=== PATIENT | male | born 1975 | race Caucasian/White ===

== ENCOUNTER 2017-10-01 19:29 | Inpatient (IN) | payer OTHER ==
[~2017-10-01] VITALS: Ht 175.3 cm; Wt 106.2 kg
--- NOTE | 2017-10-01 19:45 | PHYS DOC ---
Adult General Chief Complaint Chief Complaint: NAUSEA/VOMITING/DIARRHA HPI HPI Patient is a 42 year old male who presents with right lower quadrant pain and diarrhea. He states he symptoms are going on for the last 3 days he's had numerous nonbloody loose stools and then last night developed right lower quadrant pain that comes and goes. He states it comes on for couple hours and then goes away he states is sharp stabbing in the right lower quadrant. Nothing makes it better or worse. He denies any dysuria he denies any testicular pain. He did have one episode of vomiting this morning. He denies blood in his vomit. He denies any blood in his stools. He states he actually was on Flagyl 2 weeks ago because he been having intermittent diarrhea this prescription ran approximately week ago. He denies any fevers or chills. He states anything he eats or drinks comes out as diarrhea. He has a past medical history of hypertension, dyslipidemia and bipolar. Review of Systems Review of Systems Constitutional: Denies fever or chills [] Eyes: Denies change in visual acuity, redness, or eye pain [] HENT: Denies nasal congestion or sore throat [] Respiratory: Denies cough or shortness of breath [] Cardiovascular: No additional information not addressed in HPI [] GI: Positive for abdominal pain, nausea, vomiting diarrhea , denies any bloody stools : Denies dysuria or hematuria [] Musculoskeletal: Denies back pain or joint pain [] Integument: Denies rash or skin lesions [] Neurologic: Denies headache, focal weakness or sensory changes [] Endocrine: Denies polyuria or polydipsia [] All other systems were reviewed and found to be within normal limits, except as documented in this note. Current Medications Current Medications Current Medications Medications (Trade) Dose Ordered Sig/Trinh Start Time Stop Time Status Last Admin Dose Admin Info (Do NOT chart on this entry -- for MONITORING) 1 each PRN DAILY PRN 10/01/17 21:00 10/03/17 20:59 Iohexol (Omnipaque 300 Mg/ml) 75 ml 1X ONCE 10/01/17 21:15 10/01/17 21:16 DC 10/01/17 20:58 75 ML Levofloxacin/ Dextrose (Levaquin Per Pharmacy) 1 each PRN DAILY PRN 10/01/17 21:30 UNV Metronidazole 100 ml @ 100 mls/hr Q8HRS 10/01/17 22:00 UNV Morphine Sulfate 4 mg PRN Q15MIN PRN 10/01/17 20:30 10/02/17 20:29 10/01/17 20:46 4 MG Ondansetron HCl (Zofran) 4 mg 1X ONCE 10/01/17 20:45 10/01/17 20:46 DC 10/01/17 20:46 4 MG Sodium Chloride 1,000 ml @ 1,000 mls/hr Q1H 10/01/17 20:30 10/01/17 21:29 DC 10/01/17 20:46 1,000 MLS/HR Allergies Allergies Allergies Coded Allergies Type Severity Reaction Last Updated Verified Penicillins Allergy Severe 10/01/17 Yes codeine Allergy Intermediate 10/01/17 Yes Physical Exam Physical Exam Constitutional: Well developed, well nourished, no acute distress, non-toxic appearance. [] HENT: Normocephalic, atraumatic, bilateral external ears normal, oropharynx moist, no oral exudates, nose normal. [] Eyes: PERRLA, EOMI, conjunctiva normal, no discharge. [] Neck: Normal range of motion, no tenderness, supple, no stridor. [] Cardiovascular:Heart rate regular rhythm, no murmur [] Lungs & Thorax: Bilateral breath sounds clear to auscultation [] Abdomen: Bowel sounds normal, soft, tender to palpation in the right lower quadrant, mild guarding, psoas sign positive, no masses, no pulsatile masses. [ ] Skin: Warm, dry, no erythema, no rash. [] Back: No tenderness, no CVA tenderness. [] Extremities: No tenderness, no cyanosis, no clubbing, ROM intact, no edema. [] Neurologic: Alert and oriented X 3, normal motor function, normal sensory function, no focal deficits noted. [] Psychologic: Affect normal, judgement normal, mood normal. [] Current Patient Data Vital Signs Vital Signs Date Time Temp Pulse Resp B/P (MAP) Pulse Ox O2 Delivery O2 Flow Rate FiO2 10/01/17 20:46 20 10/01/17 20:00 97.9 93 138/87 (104) 96 Room Air 97.9 Lab Values Laboratory Tests Test 10/01/17 20:00 10/01/17 20:32 White Blood Count 11.5 x10^3/uL (4.0-11.0) H Red Blood Count 4.72 x10^6/uL (4.30-5.70) Hemoglobin 14.0 g/dL (13.0-17.5) Hematocrit 42.2 % (39.0-53.0) Mean Corpuscular Volume 90 fL (79-100) Mean Corpuscular Hemoglobin 30 pg (25-35) Mean Corpuscular Hemoglobin Concent 33 g/dL (31-37) Red Cell Distribution Width 14.7 % (11.5-14.5) H Platelet Count 267 x10^3/uL (140-400) Neutrophils (%) (Auto) 49 % (31-73) Lymphocytes (%) (Auto) 41 % (24-48) Monocytes (%) (Auto) 7 % (0-9) Eosinophils (%) (Auto) 3 % (0-3) Basophils (%) (Auto) 1 % (0-3) Neutrophils # (Auto) 5.6 x10^3uL (1.8-7.7) Lymphocytes # (Auto) 4.7 x10^3/uL (1.0-4.8) Monocytes # (Auto) 0.8 x10^3/uL (0.0-1.1) Eosinophils # (Auto) 0.3 x10^3/uL (0.0-0.7) Basophils # (Auto) 0.1 x10^3/uL (0.0-0.2) Prothrombin Time 12.4 SEC (11.7-14.0) Prothrombin Time INR 1.0 (0.8-1.1) PTT 26 SEC (24-38) Sodium Level 136 mmol/L (136-145) Potassium Level 4.0 mmol/L (3.5-5.1) Chloride Level 101 mmol/L (98-107) Carbon Dioxide Level 25 mmol/L (21-32) Anion Gap 10 (6-14) Blood Urea Nitrogen 10 mg/dL (8-26) Creatinine 0.9 mg/dL (0.7-1.3) Estimated GFR (Cockcroft-Gault) 93.5 Glucose Level 130 mg/dL (70-99) H Calcium Level 8.5 mg/dL (8.5-10.1) Total Bilirubin 0.2 mg/dL (0.2-1.0) Direct Bilirubin 0.1 mg/dL (0.0-0.2) Aspartate Amino Transferase (AST) 21 U/L (15-37) Alanine Aminotransferase (ALT) 45 U/L (16-63) Alkaline Phosphatase 82 U/L (46-116) Creatine Kinase 189 U/L (39-308) Creatine Kinase MB (Mass) 1.6 ng/mL (0.0-3.6) Creatine Kinase MB Relative Index 0.8 % (0-4) Troponin I Quantitative < 0.017 ng/mL (0.000-0.055) Total Protein 7.4 g/dL (6.4-8.2) Albumin 3.7 g/dL (3.4-5.0) Lipase 165 U/L (73-393) Urine Collection Type Unknown Urine Color Yellow Urine Clarity Clear Urine pH 6.0 Urine Specific [place] <=1.005 Urine Protein Negative mg/dL (NEG-TRACE) Urine Glucose (UA) Negative mg/dL (NEG) Urine Ketones (Stick) Negative mg/dL (NEG) Urine Blood Negative (NEG) Urine Nitrite Negative (NEG) Urine Bilirubin Negative (NEG) Urine Urobilinogen Dipstick 0.2 mg/dL (0.2 mg/dL) Urine Leukocyte Esterase Negative (NEG) Urine RBC 0 /HPF (0-2) Urine WBC 0 /HPF (0-4) Urine Bacteria 0 /HPF (0-FEW) Urine Opiates Screen Neg (NEG) Urine Methadone Screen Neg (NEG) Urine Barbiturates Neg (NEG) Urine Phencyclidine Screen Neg (NEG) Urine Amphetamine/Methamphetamine Neg (NEG) Urine Benzodiazepines Screen Neg (NEG) Urine Cocaine Screen Neg (NEG) Urine Cannabinoids Screen Neg (NEG) Urine Ethyl Alcohol Neg (NEG) Laboratory Tests 10/01/17 20:00 Laboratory Tests 10/01/17 20:00 EKG EKG [] Radiology/Procedures Radiology/Procedures [facility] [address] [place] [address] IMAGING REPORT Signed PATIENT: LILI GODOY V ACCOUNT: [id number] : 1975 LOCATION: ER AGE: 42 SEX: M EXAM STATUS: REG ER ORD. PHYSICIAN: GRIFFIN RUIZ MD REASON: abd pain PROCEDURE: CT ABD PELV W/ IV CONTRST ONLY CT Abdomen and Pelvis With Intravenous Contrast: History: Nausea, vomiting, diarrhea for 3 days . Right lower quadrant pain today. Comparison: None. Technique: After administration of intravenous contrast, 75 mL Omnipaque-300, CT of the abdomen and pelvis was performed. Exposure: One or more of the following individualized dose reduction techniques were utilized for this examination: 1. Automated exposure control 2. Adjustment of the mA and/or kV according to patient size 3. Use of iterative reconstruction technique Findings: Liver, spleen, pancreas, gallbladder, and right adrenal gland are unremarkable. Left adrenal gland demonstrates 2.0 cm nodule, nonspecific. Bilateral kidneys enhance symmetrically. No bowel obstruction or inflammation is seen. Urinary bladder is unremarkable. No free air or free fluid is seen in the abdomen or pelvis. Appendix is borderline enlarged with diameter of 8 mm up. No convincing periappendiceal inflammation is identified. Impression: 1. Appendix is mildly enlarged measuring 8 mm in diameter. Recommend clinical correlation as CT findings are considered equivocal for acute appendicitis, although no periappendiceal inflammation is identified. 2. Nonspecific left adrenal nodule. If no history of malignancy, based on size, most likely etiology is adenoma. Recommend clinical correlation. If indicated, elective, nonemergent adrenal mass protocol CT versus MRI could be performed Electronically signed by: Gaurav Hernandez MD (10/01/2017 9:11 PM) [facility] DICTATED and SIGNED BY: GAURAV HERNANDEZ MD DATE: 10/01/172105 CC: GRIFFIN RUIZ MD; KATRIN ACOSTA MD ~ Impressions: Abdominal pain Diarrhea Course & Med Decision Making Course & Med Decision Making Pertinent Labs and Imaging studies reviewed. (See chart for details) CT scan is somewhat concerning for appendicitis. Spoke with Dr. Yarbrough who wants patient started on Flagyl and Levaquin since have a penicillin allergy, made nothing by mouth after midnight and he will see him in the morning to determine if the need to go the OR not. Patient has been updated on the results. He is in stable condition at this time be admitted to the hospitalist. Dragon Disclaimer Dragon Disclaimer This electronic medical record was generated, in whole or in part, using a voice recognition dictation system. Departure Departure Impression: Primary Impression: Abdominal pain Disposition: 09 ADMITTED INPATIENT Admitting Physician: Juanita Nicole Condition: STABLE GRIFFIN RUIZ MD Oct 01, 2017 19:45
[2017-10-01] MEDS ORDERED: IV NORMAL SALINE 1000ML BAG 1,000 ML IV SCH (20:30)
[2017-10-01 20:35] LABS: BASO # 0.1 x10^3/uL (0.0-0.2); BASO % 1 % (0-3); EOS % 3 % (0-3); HEMATOCRIT 42.2 % (39.0-53.0); LYMPH # 4.7 x10^3/uL (1.0-4.8); LYMPH % 41 % (24-48); MEAN CORPUSCULAR HEMOGLOBIN 30 pg (25-35); MEAN CORPUSCULAR HGB CONC 33 g/dL (31-37); MEAN CORPUSCULAR VOLUME 90 fL (79-100); MONO % 7 % (0-9); NEUT % 49 % (31-73); PLATELET COUNT 267 x10^3/uL (140-400); RED BLOOD COUNT 4.72 x10^6/uL (4.30-5.70); RED CELL DISTRIBUTION WIDTH 14.7 % (11.5-14.5); WHITE BLOOD COUNT 11.5 x10^3/uL (4.0-11.0)
[2017-10-01 20:38] LABS: BILIRUBIN,URINE NEGATIVE (NEG); GLUCOSE,URINE NEGATIVE (NEG); NITRITE,URINE NEGATIVE (NEG); PROTEIN,URINE NEGATIVE (NEG-TRACE); UROBILINOGEN,URINE 0.2 mg/dL (0.2 mg/dL)
[2017-10-01 20:44] LABS: PROTHROMBIN TIME PATIENT 12.4 SEC (11.7-14.0)
[2017-10-01 20:44] LABS: BARBITURATES NEG (NEG); BENZODIAZEPINES NEG (NEG); CANNABINOIDS NEG (NEG); COCAINE NEG (NEG); METHADONE NEG (NEG); OPIATES NEG (NEG); PHENCYCLIDINE NEG (NEG)
[2017-10-01] MEDS ORDERED: ONDANSETRON PF 4 MG/2 ML VIAL. IV ONE (20:45)
[2017-10-01] MEDS: MORPHINE SULFATE 4 MG/ML DISP.SYRIN. IV/SQ PRN ×2 (20:46→21:50)
[2017-10-01 20:48] LABS: CALCIUM 8.5 mg/dL (8.5-10.1); CREATININE 0.9 mg/dL (0.7-1.3); GFR 93.5
[2017-10-01 20:49] LABS: BACTERIA,URINE 0 /HPF (0-FEW); RBC,URINE 0 /HPF (0-2); WBC,URINE 0 /HPF (0-4)
[2017-10-01 20:54] LABS: ALBUMIN 3.7 g/dL (3.4-5.0); DIRECT BILIRUBIN 0.1 mg/dL (0.0-0.2); TOTAL BILIRUBIN 0.2 mg/dL (0.2-1.0); TOTAL PROTEIN 7.4 g/dL (6.4-8.2)
[2017-10-01 21:00] LABS: CKMB MASS 1.6 ng/mL (0.0-3.6)
[2017-10-01] MEDS ORDERED: CONTRAST GIVEN MC PRN (21:00)
--- NOTE | 2017-10-01 21:14 | RAD ---
CT Abdomen and Pelvis With Intravenous Contrast: History: Nausea, vomiting, diarrhea for 3 days . Right lower quadrant pain today. Comparison: None. Technique: After administration of intravenous contrast, 75 mL Omnipaque-300, CT of the abdomen and pelvis was performed. Exposure: One or more of the following individualized dose reduction techniques were utilized for this examination: 1. Automated exposure control 2. Adjustment of the mA and/or kV according to patient size 3. Use of iterative reconstruction technique Findings: Liver, spleen, pancreas, gallbladder, and right adrenal gland are unremarkable. Left adrenal gland demonstrates 2.0 cm nodule, nonspecific. Bilateral kidneys enhance symmetrically. No bowel obstruction or inflammation is seen. Urinary bladder is unremarkable. No free air or free fluid is seen in the abdomen or pelvis. Appendix is borderline enlarged with diameter of 8 mm up. No convincing periappendiceal inflammation is identified. Impression: 1. Appendix is mildly enlarged measuring 8 mm in diameter. Recommend clinical correlation as CT findings are considered equivocal for acute appendicitis, although no periappendiceal inflammation is identified. 2. Nonspecific left adrenal nodule. If no history of malignancy, based on size, most likely etiology is adenoma. Recommend clinical correlation. If indicated, elective, nonemergent adrenal mass protocol CT versus MRI could be performed Electronically signed by: Gaurav Mcfadden MD (10/01/2017 9:11 PM) [facility]
[2017-10-01] MEDS ORDERED: IOHEXOL 300 MG/ML 100ML VIAL. IV ONE (21:15)
[2017-10-01] MEDS ORDERED: levOFLOXacin PER PHARMACY. MC PRN (21:30)
[2017-10-01 22:27] VITALS: BP 143/93
[2017-10-02] VITALS (12 sets, daily range): BP systolic 87–156; BP diastolic 49–91
[2017-10-02] MEDS ORDERED: METO-239 PO (01:05)
[2017-10-02] MEDS ORDERED: BUSP15TA PO (01:05)
[2017-10-02] MEDS ORDERED: ARIP15TA6 PO (01:05)
[2017-10-02] MEDS ORDERED: ATOR80TA72 PO (01:05)
[2017-10-02] MEDS ORDERED: LACT1CAP8 PO (01:05)
[2017-10-02] MEDS ORDERED: DIVA500T17 PO (01:08)
[2017-10-02] MEDS: MORPHINE SULFATE 4 MG/ML DISP.SYRIN. IV PRN ×5 (02:16→21:36)
[2017-10-02] MEDS ORDERED: ONDANSETRON PF 4 MG/2 ML VIAL. IV PRN ×3 (05:00→14:15)
--- NOTE | 2017-10-02 06:34 | EKG ---
[facility] [address] [place] [address] Test Date: 2017-10-01 Test Time: 20:41:50 Pat Name: LILI GODOY Department: Room: 416 1 Gender: M [employer]: : 1975 Requested By: GRIFFIN RUIZ Order Number: [id number] Reading MD: Steven Anguiano Measurements Intervals [place] Rate: 89 P: 34 UT: 200 QRS: 27 QRSD: 92 T: 41 QT: 366 QTc: 452 Interpretive Statements SINUS RHYTHM LEFT ATRIAL ABNORMALITY INCOMPLETE RIGHT BUNDLE BRANCH BLOCK ABNORMAL ECG RI6.01 No previous ECG available for comparison Electronically Signed On 10-02-2017 17:41:47 MILL CONTROL OPERATOR by Steven Anguiano
--- NOTE | 2017-10-02 08:23 | PDOC2 ---
SOURAV GARCIA HYDROELECTRIC STATION OPERATOR 10/02/17 0823: CONSULT Date of Consult Date of Consult DATE: 10/02/17 TIME: 08:14 Reason for Consult Reason for Consult: abdominal pain Referring Physician Referring Physician: ER Identification/Chief Complaint Chief Complaint abdominal pain, diarrhea Problems: Source Source: Chart review, Patient History of Present Illness Reason for Visit: Reports 2 month history of diarrhea, RLQ pain, early satiety, and vomiting. Over the last 3 days symptoms became increasingly worse. Pain is aggravated by movement and touch. He was treated with Flagyl 2 weeks ago for the diarrhea, symptoms improved while taking it, however returned once stopped. No previous stool cultures have been taken Past Medical History Cardiovascular: Hyperlipidemia Psych: Bipolar Past Surgical History Past Surgical History: Hernia Repair (umbilical) Family History Family History: Other (noncontributory to current illness ) Social History 2 packs per day ALCOHOL: none Drugs: None Lives: with Family Current Problem List Problem List Problems Medical Problems: (1) Abdominal pain Status: Acute Current Medications Current Medications Current Medications Morphine Sulfate 4 mg PRN Q15MIN PRN IV/SQ PAIN GREATER THAN 3/10 Last administered on 10/01/17 21:50; Start 10/01/17 at 20:30; Stop 10/02/17 at 20 :29 Sodium Chloride 1,000 ml @ 1,000 mls/hr Q1H IV Last administered on 20:46; Start 10/01/17 at 20:30; Stop 10/01/17 at 21:29; Status DC Ondansetron HCl (Zofran) 4 mg 1X ONCE IV Last administered on 10/01/17 20:46 ; Start 10/01/17 at 20:45; Stop 10/01/17 at 20:46; Status DC Iohexol (Omnipaque 300 Mg/ml) 75 ml 1X ONCE IV Last administered on 20:58; Start 10/01/17 at 21:15; Stop 10/01/17 at 21:16; Status DC Info (Do NOT chart on this entry -- for MONITORING) 1 each PRN DAILY PRN MC SEE COMMENTS; Start 10/01/17 at 21:00; Stop 10/03/17 at 20:59 Levofloxacin/ Dextrose (Levaquin Per Pharmacy) 1 each PRN DAILY PRN MC SEE COMMENTS; Start 10/01/17 at 21:30 Metronidazole 100 ml @ 100 mls/hr Q8HRS IV Last administered on 10/02/17 05: 37; Start 10/01/17 at 22:00 Levofloxacin/ Dextrose 150 ml @ 100 mls/hr 1X ONCE IV Last administered on 23:22; Start 10/01/17 at 22:00; Stop 10/01/17 at 23:29; Status DC Levofloxacin/ Dextrose 100 ml @ 100 mls/hr Q24H IV ; Start 10/02/17 at 22:00 Morphine Sulfate 4 mg PRN Q2HR PRN IV SEVERE PAIN Last administered on 05:02; Start 10/02/17 at 02:00 Ondansetron HCl (Zofran) 4 mg PRN Q6HRS PRN IV NAUSEA/VOMITING Last administered on 10/02/17 05:01; Start 10/02/17 at 05:00 Divalproex Sodium (Depakote Er) 500 mg DAILY PO ; Start 10/02/17 at 09:00 Metoprolol Succinate (Toprol Xl) 25 mg DAILY PO ; Start 10/02/17 at 09:00 Aripiprazole (Abilify) 15 mg DAILY PO ; Start 10/02/17 at 09:00 Atorvastatin Calcium (Lipitor) 80 mg QHS PO ; Start 10/02/17 at 21:00 Buspirone HCl (Buspar) 15 mg DAILY PO ; Start 10/02/17 at 09:00 Lactobacillus Rhamnosus (Culturelle) 1 cap BID PO ; Start 10/02/17 at 09:00 Active Scripts Active Reported Divalproex Sodium Er (Divalproex Sodium) 500 Mg Tab.er.24h 500 Mg PO DAILY Probiotic (Lactobacillus Combo No.11) 1 Each Cap.sprink 1 Each PO BID Buspirone Hcl 15 Mg Tablet 15 Mg PO DAILY Atorvastatin Calcium 80 Mg Tablet 80 Mg PO DAILY Aripiprazole 15 Mg Tablet 15 Mg PO DAILY Metoprolol Succinate ( Xl ) (Metoprolol Succinate) 25 Mg Tab.er.24h 25 Mg PO DAILY Allergies Allergies: Coded Allergies: Penicillins (Verified Allergy, Severe, 10/01/17) codeine (Verified Allergy, Intermediate, 10/01/17) ROS General: YES: Chills, No: Other (fevers) PSYCHOLOGICAL ROS: No: Anxiety, Depression Eyes: No Blurry vision, No Double vision HEENT: No: Heacaches, Sore Throat Hematological and Lymphatic: No: Bleeding Problems, Blood Clots Respiratory: YES: SOB with excertion, No: Cough Cardiovascular: No Chest Pain, No Palpitations Gastrointestinal: Yes Other (see hpi) Genitourinary: No Dysuria, No Hematuria Musculoskeletal: Yes Joint Stiffness, No Joint Pain Neurological: No Impaired Coord/balance, No Numbness/Tingling Skin: No Pruritus, No Rash Physical Exam General: Alert, Oriented X3, Cooperative, No acute distress HEENT: PERRLA, Mucous membr. moist/pink Lungs: Clear to auscultation, Normal air movement Heart: Regular rate, Normal S1, Normal S2, No murmurs Abdomen: Soft, Other (moderate ttp to RLQ, no reboun rené guarding ) Skin: No rashes, No breakdown Neuro: Normal gait, Normal speech Psych/Mental Status: Mental status NL, Mood NL MUSCULOSKELETAL: No deformity, No swelling Vitals VITALS Vital Signs Date Time Temp Pulse Resp B/P (MAP) Pulse Ox O2 Delivery O2 Flow Rate FiO2 10/02/17 05:32 18 10/02/17 05:02 Room Air 10/02/17 03:00 97.4 87 156/88 (110) 95 97.4 Labs Labs Laboratory Tests Test 10/01/17 20:00 10/01/17 20:32 White Blood Count 11.5 x10^3/uL (4.0-11.0) Red Blood Count 4.72 x10^6/uL (4.30-5.70) Hemoglobin 14.0 g/dL (13.0-17.5) Hematocrit 42.2 % (39.0-53.0) Mean Corpuscular Volume 90 fL (79-100) Mean Corpuscular Hemoglobin 30 pg (25-35) Mean Corpuscular Hemoglobin Concent 33 g/dL (31-37) Red Cell Distribution Width 14.7 % (11.5-14.5) Platelet Count 267 x10^3/uL (140-400) Neutrophils (%) (Auto) 49 % (31-73) Lymphocytes (%) (Auto) 41 % (24-48) Monocytes (%) (Auto) 7 % (0-9) Eosinophils (%) (Auto) 3 % (0-3) Basophils (%) (Auto) 1 % (0-3) Neutrophils # (Auto) 5.6 x10^3uL (1.8-7.7) Lymphocytes # (Auto) 4.7 x10^3/uL (1.0-4.8) Monocytes # (Auto) 0.8 x10^3/uL (0.0-1.1) Eosinophils # (Auto) 0.3 x10^3/uL (0.0-0.7) Basophils # (Auto) 0.1 x10^3/uL (0.0-0.2) Prothrombin Time 12.4 SEC (11.7-14.0) Prothromb Time International Ratio 1.0 (0.8-1.1) Activated Partial Thromboplast Time 26 SEC (24-38) Sodium Level 136 mmol/L (136-145) Potassium Level 4.0 mmol/L (3.5-5.1) Chloride Level 101 mmol/L (98-107) Carbon Dioxide Level 25 mmol/L (21-32) Anion Gap 10 (6-14) Blood Urea Nitrogen 10 mg/dL (8-26) Creatinine 0.9 mg/dL (0.7-1.3) Estimated GFR (Cockcroft-Gault) 93.5 Glucose Level 130 mg/dL (70-99) Calcium Level 8.5 mg/dL (8.5-10.1) Total Bilirubin 0.2 mg/dL (0.2-1.0) Direct Bilirubin 0.1 mg/dL (0.0-0.2) Aspartate Amino Transf (AST/SGOT) 21 U/L (15-37) Alanine Aminotransferase (ALT/SGPT) 45 U/L (16-63) Alkaline Phosphatase 82 U/L (46-116) Creatine Kinase 189 U/L (39-308) Creatine Kinase MB (Mass) 1.6 ng/mL (0.0-3.6) Creatine Kinase MB Relative Index 0.8 % (0-4) Troponin I Quantitative < 0.017 ng/mL (0.000-0.055) Total Protein 7.4 g/dL (6.4-8.2) Albumin 3.7 g/dL (3.4-5.0) Lipase 165 U/L (73-393) Urine Collection Type Unknown Urine Color Yellow Urine Clarity Clear Urine pH 6.0 Urine Specific [place] <=1.005 Urine Protein Negative mg/dL (NEG-TRACE) Urine Glucose (UA) Negative mg/dL (NEG) Urine Ketones (Stick) Negative mg/dL (NEG) Urine Blood Negative (NEG) Urine Nitrite Negative (NEG) Urine Bilirubin Negative (NEG) Urine Urobilinogen Dipstick 0.2 mg/dL (0.2 mg/dL) Urine Leukocyte Esterase Negative (NEG) Urine RBC 0 /HPF (0-2) Urine WBC 0 /HPF (0-4) Urine Bacteria 0 /HPF (0-FEW) Urine Opiates Screen Neg (NEG) Urine Methadone Screen Neg (NEG) Urine Barbiturates Neg (NEG) Urine Phencyclidine Screen Neg (NEG) Urine Amphetamine/Methamphetamine Neg (NEG) Urine Benzodiazepines Screen Neg (NEG) Urine Cocaine Screen Neg (NEG) Urine Cannabinoids Screen Neg (NEG) Urine Ethyl Alcohol Neg (NEG) Laboratory Tests Test 10/01/17 20:00 10/01/17 20:32 White Blood Count 11.5 x10^3/uL (4.0-11.0) Red Blood Count 4.72 x10^6/uL (4.30-5.70) Hemoglobin 14.0 g/dL (13.0-17.5) Hematocrit 42.2 % (39.0-53.0) Mean Corpuscular Volume 90 fL (79-100) Mean Corpuscular Hemoglobin 30 pg (25-35) Mean Corpuscular Hemoglobin Concent 33 g/dL (31-37) Red Cell Distribution Width 14.7 % (11.5-14.5) Platelet Count 267 x10^3/uL (140-400) Neutrophils (%) (Auto) 49 % (31-73) Lymphocytes (%) (Auto) 41 % (24-48) Monocytes (%) (Auto) 7 % (0-9) Eosinophils (%) (Auto) 3 % (0-3) Basophils (%) (Auto) 1 % (0-3) Neutrophils # (Auto) 5.6 x10^3uL (1.8-7.7) Lymphocytes # (Auto) 4.7 x10^3/uL (1.0-4.8) Monocytes # (Auto) 0.8 x10^3/uL (0.0-1.1) Eosinophils # (Auto) 0.3 x10^3/uL (0.0-0.7) Basophils # (Auto) 0.1 x10^3/uL (0.0-0.2) Prothrombin Time 12.4 SEC (11.7-14.0) Prothromb Time International Ratio 1.0 (0.8-1.1) Activated Partial Thromboplast Time 26 SEC (24-38) Sodium Level 136 mmol/L (136-145) Potassium Level 4.0 mmol/L (3.5-5.1) Chloride Level 101 mmol/L (98-107) Carbon Dioxide Level 25 mmol/L (21-32) Anion Gap 10 (6-14) Blood Urea Nitrogen 10 mg/dL (8-26) Creatinine 0.9 mg/dL (0.7-1.3) Estimated GFR (Cockcroft-Gault) 93.5 Glucose Level 130 mg/dL (70-99) Calcium Level 8.5 mg/dL (8.5-10.1) Total Bilirubin 0.2 mg/dL (0.2-1.0) Direct Bilirubin 0.1 mg/dL (0.0-0.2) Aspartate Amino Transf (AST/SGOT) 21 U/L (15-37) Alanine Aminotransferase (ALT/SGPT) 45 U/L (16-63) Alkaline Phosphatase 82 U/L (46-116) Creatine Kinase 189 U/L (39-308) Creatine Kinase MB (Mass) 1.6 ng/mL (0.0-3.6) Creatine Kinase MB Relative Index 0.8 % (0-4) Troponin I Quantitative < 0.017 ng/mL (0.000-0.055) Total Protein 7.4 g/dL (6.4-8.2) Albumin 3.7 g/dL (3.4-5.0) Lipase 165 U/L (73-393) Urine Collection Type Unknown Urine Color Yellow Urine Clarity Clear Urine pH 6.0 Urine Specific [place] <=1.005 Urine Protein Negative mg/dL (NEG-TRACE) Urine Glucose (UA) Negative mg/dL (NEG) Urine Ketones (Stick) Negative mg/dL (NEG) Urine Blood Negative (NEG) Urine Nitrite Negative (NEG) Urine Bilirubin Negative (NEG) Urine Urobilinogen Dipstick 0.2 mg/dL (0.2 mg/dL) Urine Leukocyte Esterase Negative (NEG) Urine RBC 0 /HPF (0-2) Urine WBC 0 /HPF (0-4) Urine Bacteria 0 /HPF (0-FEW) Urine Opiates Screen Neg (NEG) Urine Methadone Screen Neg (NEG) Urine Barbiturates Neg (NEG) Urine Phencyclidine Screen Neg (NEG) Urine Amphetamine/Methamphetamine Neg (NEG) Urine Benzodiazepines Screen Neg (NEG) Urine Cocaine Screen Neg (NEG) Urine Cannabinoids Screen Neg (NEG) Urine Ethyl Alcohol Neg (NEG) Assessment/Plan Assessment/Plan RLQ pain, diarrhea CT with concerns for early appendicitis--symptoms usual for acute appendicitis-- -however concern with CT/exam findings --will have Dr Martinez review may need to consider GI consult C diff pending Tobaccoism, SOA--encourage cessation bipolar, HTN, HLD KYLE MARTINEZ MD 10/02/17 1008: CONSULT Allergies Allergies: Coded Allergies: Penicillins (Verified Allergy, Severe, 10/01/17) codeine (Verified Allergy, Intermediate, 10/01/17) Assessment/Plan Assessment/Plan pt seen, interviewed and examined offered l/s appy vs observation he prefers the former explained risks to him and his mother, including but not limited to bleeding, infection, injury to bowel, bladder, or possible need for an open procedure also chance of symptoms persisting despite removing his appendix he understands and would like to proceed Thanks for consult! SOURAV GARCIA APRN Oct 02, 2017 08:23 KYLE MARTINEZ MD Oct 02, 2017 10:08
--- NOTE | 2017-10-02 08:57 | PDOC1 ---
History and Physical Date of Admission Date of Admission DATE: 10/02/17 TIME: 08:52 Identification/Chief Complaint Chief Complaint abd pain Problems: Source Source: Caregiver, Chart review, Patient History of Present Illness History of Present Illness 42 y.o heavys et male with no signif past medical, 3 day hx diarrhea and RLQ pain, 1 episode emesis, no fevers, he noticed after he ate [employer] pizza 3 days ago, no recent sick contact, nobody else sick at home in household , CT shows: Impression: 1. Appendix is mildly enlarged measuring 8 mm in diameter. Recommend clinical correlation as CT findings are considered equivocal for acute appendicitis, although no periappendiceal inflammation is identified. 2. Nonspecific left adrenal nodule. If no history of malignancy, based on size, most likely etiology is adenoma. Recommend clinical correlation. If indicated, elective, nonemergent adrenal mass protocol CT versus MRI could be performed APpendix on generous size, made nPO, agreebale to have sx if needed Positive PSoas sign, GS consulted - will review with surgeon and might need GI given CT above findings Past Medical History Cardiovascular: Hyperlipidemia Psych: Bipolar Past Surgical History Past Surgical History: Hernia Repair (umbilical), No pertinent history Family History Family History: Hypertension, Other (noncontributory to current illness ) Social History Smoke: No ALCOHOL: none Drugs: None Current Problem List Problem List Problems Medical Problems: (1) Abdominal pain Status: Acute Problems: Current Medications Current Medications Current Medications Morphine Sulfate 4 mg PRN Q15MIN PRN IV/SQ PAIN GREATER THAN 3/10 Last administered on 10/01/17 21:50; Start 10/01/17 at 20:30; Stop 10/02/17 at 20 :29 Sodium Chloride 1,000 ml @ 1,000 mls/hr Q1H IV Last administered on 20:46; Start 10/01/17 at 20:30; Stop 10/01/17 at 21:29; Status DC Ondansetron HCl (Zofran) 4 mg 1X ONCE IV Last administered on 10/01/17 20:46 ; Start 10/01/17 at 20:45; Stop 10/01/17 at 20:46; Status DC Iohexol (Omnipaque 300 Mg/ml) 75 ml 1X ONCE IV Last administered on 20:58; Start 10/01/17 at 21:15; Stop 10/01/17 at 21:16; Status DC Info (Do NOT chart on this entry -- for MONITORING) 1 each PRN DAILY PRN MC SEE COMMENTS; Start 10/01/17 at 21:00; Stop 10/03/17 at 20:59 Levofloxacin/ Dextrose (Levaquin Per Pharmacy) 1 each PRN DAILY PRN MC SEE COMMENTS; Start 10/01/17 at 21:30 Metronidazole 100 ml @ 100 mls/hr Q8HRS IV Last administered on 10/02/17 05: 37; Start 10/01/17 at 22:00 Levofloxacin/ Dextrose 150 ml @ 100 mls/hr 1X ONCE IV Last administered on 23:22; Start 10/01/17 at 22:00; Stop 10/01/17 at 23:29; Status DC Levofloxacin/ Dextrose 100 ml @ 100 mls/hr Q24H IV ; Start 10/02/17 at 22:00 Morphine Sulfate 4 mg PRN Q2HR PRN IV SEVERE PAIN Last administered on 05:02; Start 10/02/17 at 02:00 Ondansetron HCl (Zofran) 4 mg PRN Q6HRS PRN IV NAUSEA/VOMITING Last administered on 10/02/17 05:01; Start 10/02/17 at 05:00 Divalproex Sodium (Depakote Er) 500 mg DAILY PO ; Start 10/02/17 at 09:00 Metoprolol Succinate (Toprol Xl) 25 mg DAILY PO ; Start 10/02/17 at 09:00 Aripiprazole (Abilify) 15 mg DAILY PO ; Start 10/02/17 at 09:00 Atorvastatin Calcium (Lipitor) 80 mg QHS PO ; Start 10/02/17 at 21:00 Buspirone HCl (Buspar) 15 mg DAILY PO ; Start 10/02/17 at 09:00 Lactobacillus Rhamnosus (Culturelle) 1 cap BID PO ; Start 10/02/17 at 09:00 Active Scripts Active Reported Divalproex Sodium Er (Divalproex Sodium) 500 Mg Tab.er.24h 500 Mg PO DAILY Probiotic (Lactobacillus Combo No.11) 1 Each Cap.sprink 1 Each PO BID Buspirone Hcl 15 Mg Tablet 15 Mg PO DAILY Atorvastatin Calcium 80 Mg Tablet 80 Mg PO DAILY Aripiprazole 15 Mg Tablet 15 Mg PO DAILY Metoprolol Succinate ( Xl ) (Metoprolol Succinate) 25 Mg Tab.er.24h 25 Mg PO DAILY Allergies Allergies: Coded Allergies: Penicillins (Verified Allergy, Severe, 10/01/17) codeine (Verified Allergy, Intermediate, 10/01/17) ROS Review of System as per hPI, all else is neg Physical Exam General: Alert, Oriented X3, Cooperative, No acute distress HEENT: Atraumatic, PERRLA, EOMI Lungs: Clear to auscultation, Normal air movement Heart: S1S2, RRR, no thrills, no rubs, no gallops Cardiovascular: S1, S2 Abdomen: Soft, Other (tenderness RLQ area, no guarding, NABS) Rectal Exam: not examined PELVIC: Nml ext genitalia Extremities: No clubbing, No cyanosis, No edema, Normal pulses, No tenderness/ swelling Skin: No rashes, No breakdown, No significant lesion Neuro: Normal gait, Normal speech, Strength at 5/5 X4 ext, Normal tone, Sensation intact, Cranial nerves 3-12 NL, Reflexes 2+ Psych/Mental Status: Mental status NL, Mood NL Vitals Vitals Vital Signs Date Time Temp Pulse Resp B/P (MAP) Pulse Ox O2 Delivery O2 Flow Rate FiO2 10/02/17 07:00 97.9 104 18 135/91 (106) 95 Room Air 97.9 Labs Labs Laboratory Tests Test 10/01/17 20:00 10/01/17 20:32 White Blood Count 11.5 x10^3/uL (4.0-11.0) Red Blood Count 4.72 x10^6/uL (4.30-5.70) Hemoglobin 14.0 g/dL (13.0-17.5) Hematocrit 42.2 % (39.0-53.0) Mean Corpuscular Volume 90 fL (79-100) Mean Corpuscular Hemoglobin 30 pg (25-35) Mean Corpuscular Hemoglobin Concent 33 g/dL (31-37) Red Cell Distribution Width 14.7 % (11.5-14.5) Platelet Count 267 x10^3/uL (140-400) Neutrophils (%) (Auto) 49 % (31-73) Lymphocytes (%) (Auto) 41 % (24-48) Monocytes (%) (Auto) 7 % (0-9) Eosinophils (%) (Auto) 3 % (0-3) Basophils (%) (Auto) 1 % (0-3) Neutrophils # (Auto) 5.6 x10^3uL (1.8-7.7) Lymphocytes # (Auto) 4.7 x10^3/uL (1.0-4.8) Monocytes # (Auto) 0.8 x10^3/uL (0.0-1.1) Eosinophils # (Auto) 0.3 x10^3/uL (0.0-0.7) Basophils # (Auto) 0.1 x10^3/uL (0.0-0.2) Prothrombin Time 12.4 SEC (11.7-14.0) Prothromb Time International Ratio 1.0 (0.8-1.1) Activated Partial Thromboplast Time 26 SEC (24-38) Sodium Level 136 mmol/L (136-145) Potassium Level 4.0 mmol/L (3.5-5.1) Chloride Level 101 mmol/L (98-107) Carbon Dioxide Level 25 mmol/L (21-32) Anion Gap 10 (6-14) Blood Urea Nitrogen 10 mg/dL (8-26) Creatinine 0.9 mg/dL (0.7-1.3) Estimated GFR (Cockcroft-Gault) 93.5 Glucose Level 130 mg/dL (70-99) Calcium Level 8.5 mg/dL (8.5-10.1) Total Bilirubin 0.2 mg/dL (0.2-1.0) Direct Bilirubin 0.1 mg/dL (0.0-0.2) Aspartate Amino Transf (AST/SGOT) 21 U/L (15-37) Alanine Aminotransferase (ALT/SGPT) 45 U/L (16-63) Alkaline Phosphatase 82 U/L (46-116) Creatine Kinase 189 U/L (39-308) Creatine Kinase MB (Mass) 1.6 ng/mL (0.0-3.6) Creatine Kinase MB Relative Index 0.8 % (0-4) Troponin I Quantitative < 0.017 ng/mL (0.000-0.055) Total Protein 7.4 g/dL (6.4-8.2) Albumin 3.7 g/dL (3.4-5.0) Lipase 165 U/L (73-393) Urine Collection Type Unknown Urine Color Yellow Urine Clarity Clear Urine pH 6.0 Urine Specific [place] <=1.005 Urine Protein Negative mg/dL (NEG-TRACE) Urine Glucose (UA) Negative mg/dL (NEG) Urine Ketones (Stick) Negative mg/dL (NEG) Urine Blood Negative (NEG) Urine Nitrite Negative (NEG) Urine Bilirubin Negative (NEG) Urine Urobilinogen Dipstick 0.2 mg/dL (0.2 mg/dL) Urine Leukocyte Esterase Negative (NEG) Urine RBC 0 /HPF (0-2) Urine WBC 0 /HPF (0-4) Urine Bacteria 0 /HPF (0-FEW) Urine Opiates Screen Neg (NEG) Urine Methadone Screen Neg (NEG) Urine Barbiturates Neg (NEG) Urine Phencyclidine Screen Neg (NEG) Urine Amphetamine/Methamphetamine Neg (NEG) Urine Benzodiazepines Screen Neg (NEG) Urine Cocaine Screen Neg (NEG) Urine Cannabinoids Screen Neg (NEG) Urine Ethyl Alcohol Neg (NEG) Laboratory Tests Test 10/01/17 20:00 10/01/17 20:32 White Blood Count 11.5 x10^3/uL (4.0-11.0) Red Blood Count 4.72 x10^6/uL (4.30-5.70) Hemoglobin 14.0 g/dL (13.0-17.5) Hematocrit 42.2 % (39.0-53.0) Mean Corpuscular Volume 90 fL (79-100) Mean Corpuscular Hemoglobin 30 pg (25-35) Mean Corpuscular Hemoglobin Concent 33 g/dL (31-37) Red Cell Distribution Width 14.7 % (11.5-14.5) Platelet Count 267 x10^3/uL (140-400) Neutrophils (%) (Auto) 49 % (31-73) Lymphocytes (%) (Auto) 41 % (24-48) Monocytes (%) (Auto) 7 % (0-9) Eosinophils (%) (Auto) 3 % (0-3) Basophils (%) (Auto) 1 % (0-3) Neutrophils # (Auto) 5.6 x10^3uL (1.8-7.7) Lymphocytes # (Auto) 4.7 x10^3/uL (1.0-4.8) Monocytes # (Auto) 0.8 x10^3/uL (0.0-1.1) Eosinophils # (Auto) 0.3 x10^3/uL (0.0-0.7) Basophils # (Auto) 0.1 x10^3/uL (0.0-0.2) Prothrombin Time 12.4 SEC (11.7-14.0) Prothromb Time International Ratio 1.0 (0.8-1.1) Activated Partial Thromboplast Time 26 SEC (24-38) Sodium Level 136 mmol/L (136-145) Potassium Level 4.0 mmol/L (3.5-5.1) Chloride Level 101 mmol/L (98-107) Carbon Dioxide Level 25 mmol/L (21-32) Anion Gap 10 (6-14) Blood Urea Nitrogen 10 mg/dL (8-26) Creatinine 0.9 mg/dL (0.7-1.3) Estimated GFR (Cockcroft-Gault) 93.5 Glucose Level 130 mg/dL (70-99) Calcium Level 8.5 mg/dL (8.5-10.1) Total Bilirubin 0.2 mg/dL (0.2-1.0) Direct Bilirubin 0.1 mg/dL (0.0-0.2) Aspartate Amino Transf (AST/SGOT) 21 U/L (15-37) Alanine Aminotransferase (ALT/SGPT) 45 U/L (16-63) Alkaline Phosphatase 82 U/L (46-116) Creatine Kinase 189 U/L (39-308) Creatine Kinase MB (Mass) 1.6 ng/mL (0.0-3.6) Creatine Kinase MB Relative Index 0.8 % (0-4) Troponin I Quantitative < 0.017 ng/mL (0.000-0.055) Total Protein 7.4 g/dL (6.4-8.2) Albumin 3.7 g/dL (3.4-5.0) Lipase 165 U/L (73-393) Urine Collection Type Unknown Urine Color Yellow Urine Clarity Clear Urine pH 6.0 Urine Specific [place] <=1.005 Urine Protein Negative mg/dL (NEG-TRACE) Urine Glucose (UA) Negative mg/dL (NEG) Urine Ketones (Stick) Negative mg/dL (NEG) Urine Blood Negative (NEG) Urine Nitrite Negative (NEG) Urine Bilirubin Negative (NEG) Urine Urobilinogen Dipstick 0.2 mg/dL (0.2 mg/dL) Urine Leukocyte Esterase Negative (NEG) Urine RBC 0 /HPF (0-2) Urine WBC 0 /HPF (0-4) Urine Bacteria 0 /HPF (0-FEW) Urine Opiates Screen Neg (NEG) Urine Methadone Screen Neg (NEG) Urine Barbiturates Neg (NEG) Urine Phencyclidine Screen Neg (NEG) Urine Amphetamine/Methamphetamine Neg (NEG) Urine Benzodiazepines Screen Neg (NEG) Urine Cocaine Screen Neg (NEG) Urine Cannabinoids Screen Neg (NEG) Urine Ethyl Alcohol Neg (NEG) VTE Prophylaxis Ordered VTE Prophylaxis Devices: Yes VTE Pharmacological Prophylaxi: Yes Assessment/Plan Assessment/Plan 1. Acute RLQ pain with generous sized appendix, possible appy 2 Diarrhea. possible viral AGE vs above 3. INcidental left adrenal nodule 4, Obesity 5. DYslipidemia PLAN: NPO IVF while NPO GS consulted Await stool studies, immodium if c diff neg Dw [facility] KENNEY CHI MD Oct 02, 2017 08:57
[2017-10-02] MEDS: ARIPiprazole 5 MG TABLET PO SCH (09:00)
[2017-10-02] MEDS: LACTOBACILLUS RHAMNOSUS GG 1 CAPSULE. PO SCH ×2 (09:00→21:35)
[2017-10-02] MEDS: busPIRone 5 MG TABLET. PO SCH (09:00)
[2017-10-02] MEDS ORDERED: LOPERAMIDE 2 MG CAPSULE PO PRN (09:00)
[2017-10-02] MEDS: IV RINGERS,LACTATED 1000ML 1,000 ML IV SCH ×2 (09:18→21:36)
[2017-10-02] MEDS: DIVALPROEX EXTENDED RELEASE 500 MG TAB.ER.24H. PO SCH (09:30)
[2017-10-02] MEDS: METOPROLOL SUCC 24HR ER 25 MG TAB.ER.24H. PO SCH (09:30)
[2017-10-02] MEDS ORDERED: IV RINGERS,LACTATED 1000ML 1,000 ML IV SCH ×2 (10:45→14:12)
[2017-10-02] MEDS ORDERED: HYDROmorphone 2 MG/ML VIAL IV PRN ×2 (10:45→14:15)
[2017-10-02] MEDS ORDERED: MORPHINE SULFATE 2 MG/ML DISP.SYRIN. IV PRN ×2 (10:45→14:15)
[2017-10-02] MEDS ORDERED: PROCHLORPERAZINE 10 MG/2 ML VIAL. IV PRN ×2 (10:45→14:15)
[2017-10-02] MEDS ORDERED: LIDOCAINE 1% PF 2 ML VIAL. ID PRN ×2 (10:45→14:15)
[2017-10-02] MEDS ORDERED: fentaNYL PF VIAL 100 MCG/2 ML VIAL IV PRN ×3 (10:45→14:15)
[2017-10-02] MEDS ORDERED: BUPIVAC MPF-EPI 0.5%-1:200000 30 ML VIAL. ONE (14:45)
[2017-10-02] MEDS ORDERED: SUCCINYLCHOLINE 200 MG/10 ML VIAL. ONE (15:38)
[2017-10-02] MEDS ORDERED: fentaNYL PF VIAL 250 MCG/5 ML VIAL ONE (15:38)
[2017-10-02] MEDS ORDERED: ROCURONIUM 50 MG/5 ML VIAL. ONE (15:38)
[2017-10-02] MEDS ORDERED: DESFLURANE > 120 MINUTES IH ONE (15:40)
[2017-10-02] MEDS ORDERED: LIDOCAINE 2% PF Vial for OR 5 ML VIAL. ONE ×2 (15:40→16:38)
[2017-10-02] MEDS ORDERED: PROPOFOL 20 ML IV ONE (15:40)
[2017-10-02] MEDS ORDERED: ONDANSETRON PF 4 MG/2 ML VIAL. ONE (15:44)
[2017-10-02] MEDS ORDERED: GLYCOPYRROLATE 1 MG/5 ML VIAL. ONE (16:27)
[2017-10-02] MEDS ORDERED: NEOSTIGMINE 10 MG/10 ML VIAL. ONE (16:27)
[2017-10-02] MEDS: fentaNYL PF VIAL 100 MCG/2 ML VIAL IV PRN ×2 (17:09→17:19)
--- NOTE | 2017-10-02 17:13 | PDOC ---
BRIEF OPERATIVE NOTE Date: Oct 02, 2017 Pre-Op Diagnosis acute appendicitis Post-Op Diagnosis same Procedure Performed l/s appendectomy Surgeon Zenon Anesthesia Type: General Blood Loss 25cc IV Fluid 700cc Urine Output 150cc Specimens Obtained appendix Findings early acute appendicitis Complications none KYLE MARTINEZ MD Oct 02, 2017 17:13
--- NOTE | 2017-10-02 18:10 | OP ---
DATE OF SURGERY: 10/02/2017 PREOPERATIVE DIAGNOSIS: Acute appendicitis. POSTOPERATIVE DIAGNOSIS: Acute appendicitis. PROCEDURE: Laparoscopic appendectomy. SURGEON: Kyle Martinez M.D. ANESTHESIA: General endotracheal. ESTIMATED BLOOD LOSS: 25 mL. IV FLUIDS: 700 mL. URINE OUTPUT: 150 mL. INDICATIONS: The patient is a 42-year-old with right lower quadrant pain and some changes seen on CT of his appendix. He is brought for appendectomy. OPERATIVE FINDINGS: It appeared to be an early appendicitis. No other abnormalities seen. DESCRIPTION OF PROCEDURE: The patient brought to the operating suite, given a general endotracheal anesthetic. Juarez catheter placement and drainage of the abdomen prepped and draped in usual sterile fashion. A supraumbilical incision was infiltrated with local anesthetic, sharply incised and a 5 mm Visiport used to safely gain access into the abdominal cavity, taking care to avoid injury to abdominal contents. Pneumoperitoneum established. Camera inserted. Inspection carried out with results as noted above. The suprapubic and left lower quadrant ports were placed under direct vision after using local anesthetic. The supraumbilical port was converted to 12 mm for instrumentation. With the table rolled to the left, the appendix was gently freed from surrounding structures and the base was identified. A rent was created between the base of the appendix and the mesoappendix and the Endo-ERICA stapler was passed and fired to amputate the base of the appendix. The mesoappendix was similarly divided with a vascular load x2. Medium large clips were used to augment hemostasis along the staple lines of the mesoappendix. Appendix placed in an EndoCatch bag. Intra-abdominal pressure decreased to 6 cm of water. No bleeding from the appendiceal stump or mesoappendix was seen. Table returned to level. Appendix delivered through the supraumbilical port. Port site closed with interrupted 0 Vicryl suture. Intra-abdominal pressure again decreased to 6 cm of water. No bleeding from the supraumbilical port closure or from the left lower quadrant port site after its removal. Abdomen decompressed, camera slowly removed, no bleeding seen. Skin incisions closed with subcuticular 4-0 Monocryl. Steri-Strips and sterile dressings applied. Juarez catheter was removed. He was awakened from his anesthetic and taken to the recovery room in satisfactory condition. KYLE MARTINEZ MD DR: Chapo JOB#: [id number] / [id number]
[2017-10-02] MEDS: ATORVASTATIN CALCIUM 40 MG TABLET. PO SCH (21:35)
[2017-10-03] VITALS (7 sets, daily range): BP systolic 97–159; BP diastolic 58–97
[2017-10-03] MEDS: MORPHINE SULFATE 4 MG/ML DISP.SYRIN. IV PRN ×3 (00:34→11:27)
[2017-10-03] MEDS: oxyCODONE/APAP 10/325 1 TAB TABLET PO PRN ×4 (03:37→19:56)
[2017-10-03] MEDS: LACTOBACILLUS RHAMNOSUS GG 1 CAPSULE. PO SCH ×2 (09:00→19:56)
[2017-10-03] MEDS: DIVALPROEX EXTENDED RELEASE 500 MG TAB.ER.24H. PO SCH (09:37)
[2017-10-03] MEDS: METOPROLOL SUCC 24HR ER 25 MG TAB.ER.24H. PO SCH (09:38)
[2017-10-03] MEDS: ARIPiprazole 5 MG TABLET PO SCH (09:38)
[2017-10-03] MEDS: busPIRone 5 MG TABLET. PO SCH (09:38)
[2017-10-03] MEDS: IV RINGERS,LACTATED 1000ML 1,000 ML IV SCH ×2 (11:40→14:04)
--- NOTE | 2017-10-03 13:02 | PDOC ---
SOURAV GARCIA [employer] 10/03/17 1302: SURGICAL PROGRESS NOTE Subjective tolerating diet pain was improved, increased after activity this AM no diarrhea Vital Signs Vital Signs Date Time Temp Pulse Resp B/P (MAP) Pulse Ox O2 Delivery O2 Flow Rate FiO2 10/03/17 12:03 Room Air 10/03/17 11:02 98.1 65 20 132/74 (93) 94 98.1 10/03/17 04:37 1.0 I&O Intake and Output 10/03/17 07:00 Intake Total 1800 ml Output Total 875 ml Balance 925 ml Intake Oral 100 ml IV Total 1700 ml Output Urine Total 850 ml Estimated Blood Loss 25 ml General: Alert, Oriented X3, Cooperative, No acute distress Abdomen: Soft, Other (dressings dry) Labs Laboratory Tests Test 10/01/17 20:00 10/01/17 20:32 10/02/17 08:00 White Blood Count 11.5 x10^3/uL (4.0-11.0) Red Blood Count 4.72 x10^6/uL (4.30-5.70) Hemoglobin 14.0 g/dL (13.0-17.5) Hematocrit 42.2 % (39.0-53.0) Mean Corpuscular Volume 90 fL (79-100) Mean Corpuscular Hemoglobin 30 pg (25-35) Mean Corpuscular Hemoglobin Concent 33 g/dL (31-37) Red Cell Distribution Width 14.7 % (11.5-14.5) Platelet Count 267 x10^3/uL (140-400) Neutrophils (%) (Auto) 49 % (31-73) Lymphocytes (%) (Auto) 41 % (24-48) Monocytes (%) (Auto) 7 % (0-9) Eosinophils (%) (Auto) 3 % (0-3) Basophils (%) (Auto) 1 % (0-3) Neutrophils # (Auto) 5.6 x10^3uL (1.8-7.7) Lymphocytes # (Auto) 4.7 x10^3/uL (1.0-4.8) Monocytes # (Auto) 0.8 x10^3/uL (0.0-1.1) Eosinophils # (Auto) 0.3 x10^3/uL (0.0-0.7) Basophils # (Auto) 0.1 x10^3/uL (0.0-0.2) Prothrombin Time 12.4 SEC (11.7-14.0) Prothromb Time International Ratio 1.0 (0.8-1.1) Activated Partial Thromboplast Time 26 SEC (24-38) Sodium Level 136 mmol/L (136-145) Potassium Level 4.0 mmol/L (3.5-5.1) Chloride Level 101 mmol/L (98-107) Carbon Dioxide Level 25 mmol/L (21-32) Anion Gap 10 (6-14) Blood Urea Nitrogen 10 mg/dL (8-26) Creatinine 0.9 mg/dL (0.7-1.3) Estimated GFR (Cockcroft-Gault) 93.5 Glucose Level 130 mg/dL (70-99) Calcium Level 8.5 mg/dL (8.5-10.1) Total Bilirubin 0.2 mg/dL (0.2-1.0) Direct Bilirubin 0.1 mg/dL (0.0-0.2) Aspartate Amino Transf (AST/SGOT) 21 U/L (15-37) Alanine Aminotransferase (ALT/SGPT) 45 U/L (16-63) Alkaline Phosphatase 82 U/L (46-116) Creatine Kinase 189 U/L (39-308) Creatine Kinase MB (Mass) 1.6 ng/mL (0.0-3.6) Creatine Kinase MB Relative Index 0.8 % (0-4) Troponin I Quantitative < 0.017 ng/mL (0.000-0.055) Total Protein 7.4 g/dL (6.4-8.2) Albumin 3.7 g/dL (3.4-5.0) Lipase 165 U/L (73-393) Urine Collection Type Unknown Urine Color Yellow Urine Clarity Clear Urine pH 6.0 Urine Specific [place] <=1.005 Urine Protein Negative mg/dL (NEG-TRACE) Urine Glucose (UA) Negative mg/dL (NEG) Urine Ketones (Stick) Negative mg/dL (NEG) Urine Blood Negative (NEG) Urine Nitrite Negative (NEG) Urine Bilirubin Negative (NEG) Urine Urobilinogen Dipstick 0.2 mg/dL (0.2 mg/dL) Urine Leukocyte Esterase Negative (NEG) Urine RBC 0 /HPF (0-2) Urine WBC 0 /HPF (0-4) Urine Bacteria 0 /HPF (0-FEW) Urine Opiates Screen Neg (NEG) Urine Methadone Screen Neg (NEG) Urine Barbiturates Neg (NEG) Urine Phencyclidine Screen Neg (NEG) Urine Amphetamine/Methamphetamine Neg (NEG) Urine Benzodiazepines Screen Neg (NEG) Urine Cocaine Screen Neg (NEG) Urine Cannabinoids Screen Neg (NEG) Urine Ethyl Alcohol Neg (NEG) Clostridium difficile Toxin (PCR) Negative (Negative) Problem List Problems Medical Problems: (1) Abdominal pain Status: Acute Assessment/Plan s/p lap appy ok to DC home Problems: KYLE MARTINEZ MD 10/03/17 1502: SURGICAL PROGRESS NOTE Assessment/Plan pt seen and examined agree with above Problems: SOURAV GARCIA APRN Oct 03, 2017 13:02 KYLE MARTINEZ MD Oct 03, 2017 15:02
[2017-10-03 13:14] LABS: BASO # 0.1 x10^3/uL (0.0-0.2); BASO % 1 % (0-3); EOS % 2 % (0-3); HEMATOCRIT 38.8 % (39.0-53.0); HEMOGLOBIN 12.7 g/dL (13.0-17.5); LYMPH # 4.1 x10^3/uL (1.0-4.8); LYMPH % 34 % (24-48); MEAN CORPUSCULAR HEMOGLOBIN 29 pg (25-35); MEAN CORPUSCULAR HGB CONC 33 g/dL (31-37); MEAN CORPUSCULAR VOLUME 90 fL (79-100); MONO % 6 % (0-9); NEUT % 58 % (31-73); PLATELET COUNT 241 x10^3/uL (140-400); RED BLOOD COUNT 4.33 x10^6/uL (4.30-5.70); RED CELL DISTRIBUTION WIDTH 14.4 % (11.5-14.5); WHITE BLOOD COUNT 12.2 x10^3/uL (4.0-11.0)
--- NOTE | 2017-10-03 13:36 | PDOC ---
PROGRESS NOTES Chief Complaint Chief Complaint 1. s/p appy POD # 1 2. Obesity BMI 34.6 History of Present Illness History of Present Illness Some post op pain NO labs today CBC was elevated on admit ATe ok PLAN: WOuld keep 1 more night - still looks not ready for home, uncomfortable CBC and BMP now COnt iVF for now Cont GI soft Hopefully home tmr- dw mother, agreed Vitals Vitals Vital Signs Date Time Temp Pulse Resp B/P (MAP) Pulse Ox O2 Delivery O2 Flow Rate FiO2 10/03/17 12:03 Room Air 10/03/17 11:02 98.1 65 20 132/74 (93) 94 98.1 10/03/17 04:37 1.0 Physical Exam General: Alert, Oriented X3, Cooperative, No acute distress Heart: Regular rate, Normal S1, Normal S2, No murmurs Abdomen: Soft, Other (dressings dry) Extremities: No clubbing, No cyanosis, No edema, Normal pulses, No tenderness/ swelling Skin: No rashes, No breakdown, No significant lesion Labs LABS Laboratory Tests Test 10/03/17 13:00 White Blood Count 12.2 x10^3/uL (4.0-11.0) Red Blood Count 4.33 x10^6/uL (4.30-5.70) Hemoglobin 12.7 g/dL (13.0-17.5) Hematocrit 38.8 % (39.0-53.0) Mean Corpuscular Volume 90 fL (79-100) Mean Corpuscular Hemoglobin 29 pg (25-35) Mean Corpuscular Hemoglobin Concent 33 g/dL (31-37) Red Cell Distribution Width 14.4 % (11.5-14.5) Platelet Count 241 x10^3/uL (140-400) Neutrophils (%) (Auto) 58 % (31-73) Lymphocytes (%) (Auto) 34 % (24-48) Monocytes (%) (Auto) 6 % (0-9) Eosinophils (%) (Auto) 2 % (0-3) Basophils (%) (Auto) 1 % (0-3) Neutrophils # (Auto) 7.1 x10^3uL (1.8-7.7) Lymphocytes # (Auto) 4.1 x10^3/uL (1.0-4.8) Monocytes # (Auto) 0.7 x10^3/uL (0.0-1.1) Eosinophils # (Auto) 0.2 x10^3/uL (0.0-0.7) Basophils # (Auto) 0.1 x10^3/uL (0.0-0.2) Review of Systems Review of Systems post op pain, passing gas, no fevers, diarrhea etc Assessment and Plan Assessmemt and Plan Problems Medical Problems: (1) Abdominal pain Status: Acute Problems: Comment Review of Relevant I have reviewed the following items adenike (where applicable) has been applied. Labs Laboratory Tests Test 10/01/17 20:00 10/01/17 20:32 10/02/17 08:00 10/03/17 13:00 White Blood Count 11.5 x10^3/uL (4.0-11.0) 12.2 x10^3/uL (4.0-11.0) Red Blood Count 4.72 x10^6/uL (4.30-5.70) 4.33 x10^6/uL (4.30-5.70) Hemoglobin 14.0 g/dL (13.0-17.5) 12.7 g/dL (13.0-17.5) Hematocrit 42.2 % (39.0-53.0) 38.8 % (39.0-53.0) Mean Corpuscular Volume 90 fL (79-100) 90 fL (79-100) Mean Corpuscular Hemoglobin 30 pg (25-35) 29 pg (25-35) Mean Corpuscular Hemoglobin Concent 33 g/dL (31-37) 33 g/dL (31-37) Red Cell Distribution Width 14.7 % (11.5-14.5) 14.4 % (11.5-14.5) Platelet Count 267 x10^3/uL (140-400) 241 x10^3/uL (140-400) Neutrophils (%) (Auto) 49 % (31-73) 58 % (31-73) Lymphocytes (%) (Auto) 41 % (24-48) 34 % (24-48) Monocytes (%) (Auto) 7 % (0-9) 6 % (0-9) Eosinophils (%) (Auto) 3 % (0-3) 2 % (0-3) Basophils (%) (Auto) 1 % (0-3) 1 % (0-3) Neutrophils # (Auto) 5.6 x10^3uL (1.8-7.7) 7.1 x10^3uL (1.8-7.7) Lymphocytes # (Auto) 4.7 x10^3/uL (1.0-4.8) 4.1 x10^3/uL (1.0-4.8) Monocytes # (Auto) 0.8 x10^3/uL (0.0-1.1) 0.7 x10^3/uL (0.0-1.1) Eosinophils # (Auto) 0.3 x10^3/uL (0.0-0.7) 0.2 x10^3/uL (0.0-0.7) Basophils # (Auto) 0.1 x10^3/uL (0.0-0.2) 0.1 x10^3/uL (0.0-0.2) Prothrombin Time 12.4 SEC (11.7-14.0) Prothromb Time International Ratio 1.0 (0.8-1.1) Activated Partial Thromboplast Time 26 SEC (24-38) Sodium Level 136 mmol/L (136-145) Potassium Level 4.0 mmol/L (3.5-5.1) Chloride Level 101 mmol/L (98-107) Carbon Dioxide Level 25 mmol/L (21-32) Anion Gap 10 (6-14) Blood Urea Nitrogen 10 mg/dL (8-26) Creatinine 0.9 mg/dL (0.7-1.3) Estimated GFR (Cockcroft-Gault) 93.5 Glucose Level 130 mg/dL (70-99) Calcium Level 8.5 mg/dL (8.5-10.1) Total Bilirubin 0.2 mg/dL (0.2-1.0) Direct Bilirubin 0.1 mg/dL (0.0-0.2) Aspartate Amino Transf (AST/SGOT) 21 U/L (15-37) Alanine Aminotransferase (ALT/SGPT) 45 U/L (16-63) Alkaline Phosphatase 82 U/L (46-116) Creatine Kinase 189 U/L (39-308) Creatine Kinase MB (Mass) 1.6 ng/mL (0.0-3.6) Creatine Kinase MB Relative Index 0.8 % (0-4) Troponin I Quantitative < 0.017 ng/mL (0.000-0.055) Total Protein 7.4 g/dL (6.4-8.2) Albumin 3.7 g/dL (3.4-5.0) Lipase 165 U/L (73-393) Urine Collection Type Unknown Urine Color Yellow Urine Clarity Clear Urine pH 6.0 Urine Specific [place] <=1.005 Urine Protein Negative mg/dL (NEG-TRACE) Urine Glucose (UA) Negative mg/dL (NEG) Urine Ketones (Stick) Negative mg/dL (NEG) Urine Blood Negative (NEG) Urine Nitrite Negative (NEG) Urine Bilirubin Negative (NEG) Urine Urobilinogen Dipstick 0.2 mg/dL (0.2 mg/dL) Urine Leukocyte Esterase Negative (NEG) Urine RBC 0 /HPF (0-2) Urine WBC 0 /HPF (0-4) Urine Bacteria 0 /HPF (0-FEW) Urine Opiates Screen Neg (NEG) Urine Methadone Screen Neg (NEG) Urine Barbiturates Neg (NEG) Urine Phencyclidine Screen Neg (NEG) Urine Amphetamine/Methamphetamine Neg (NEG) Urine Benzodiazepines Screen Neg (NEG) Urine Cocaine Screen Neg (NEG) Urine Cannabinoids Screen Neg (NEG) Urine Ethyl Alcohol Neg (NEG) Clostridium difficile Toxin (PCR) Negative (Negative) Laboratory Tests Test 10/03/17 13:00 White Blood Count 12.2 x10^3/uL (4.0-11.0) Red Blood Count 4.33 x10^6/uL (4.30-5.70) Hemoglobin 12.7 g/dL (13.0-17.5) Hematocrit 38.8 % (39.0-53.0) Mean Corpuscular Volume 90 fL (79-100) Mean Corpuscular Hemoglobin 29 pg (25-35) Mean Corpuscular Hemoglobin Concent 33 g/dL (31-37) Red Cell Distribution Width 14.4 % (11.5-14.5) Platelet Count 241 x10^3/uL (140-400) Neutrophils (%) (Auto) 58 % (31-73) Lymphocytes (%) (Auto) 34 % (24-48) Monocytes (%) (Auto) 6 % (0-9) Eosinophils (%) (Auto) 2 % (0-3) Basophils (%) (Auto) 1 % (0-3) Neutrophils # (Auto) 7.1 x10^3uL (1.8-7.7) Lymphocytes # (Auto) 4.1 x10^3/uL (1.0-4.8) Monocytes # (Auto) 0.7 x10^3/uL (0.0-1.1) Eosinophils # (Auto) 0.2 x10^3/uL (0.0-0.7) Basophils # (Auto) 0.1 x10^3/uL (0.0-0.2) Medications Current Medications Morphine Sulfate 4 mg PRN Q15MIN PRN IV/SQ PAIN GREATER THAN 3/10 Last administered on 10/01/17 21:50; Start 10/01/17 at 20:30; Stop 10/02/17 at 13 :26; Status DC Sodium Chloride 1,000 ml @ 1,000 mls/hr Q1H IV Last administered on 20:46; Start 10/01/17 at 20:30; Stop 10/01/17 at 21:29; Status DC Ondansetron HCl (Zofran) 4 mg 1X ONCE IV Last administered on 10/01/17 20:46 ; Start 10/01/17 at 20:45; Stop 10/01/17 at 20:46; Status DC Iohexol (Omnipaque 300 Mg/ml) 75 ml 1X ONCE IV Last administered on 20:58; Start 10/01/17 at 21:15; Stop 10/01/17 at 21:16; Status DC Info (Do NOT chart on this entry -- for MONITORING) 1 each PRN DAILY PRN MC SEE COMMENTS; Start 10/01/17 at 21:00; Stop 10/03/17 at 20:59 Levofloxacin/ Dextrose (Levaquin Per Pharmacy) 1 each PRN DAILY PRN MC SEE COMMENTS; Start 10/01/17 at 21:30; Stop 10/02/17 at 13:25; Status DC Metronidazole 100 ml @ 100 mls/hr Q8HRS IV Last administered on 10/03/17 06: 17; Start 10/01/17 at 22:00 Levofloxacin/ Dextrose 150 ml @ 100 mls/hr 1X ONCE IV Last administered on 23:22; Start 10/01/17 at 22:00; Stop 10/01/17 at 23:29; Status DC Levofloxacin/ Dextrose 100 ml @ 100 mls/hr Q24H IV Last administered on 21:36; Start 10/02/17 at 22:00 Morphine Sulfate 4 mg PRN Q2HR PRN IV SEVERE PAIN Last administered on 11:27; Start 10/02/17 at 02:00 Ondansetron HCl (Zofran) 4 mg PRN Q6HRS PRN IV NAUSEA/VOMITING Last administered on 10/02/17 05:01; Start 10/02/17 at 05:00 Divalproex Sodium (Depakote Er) 500 mg DAILY PO Last administered on 09:37; Start 10/02/17 at 09:00 Metoprolol Succinate (Toprol Xl) 25 mg DAILY PO Last administered on 09:38; Start 10/02/17 at 09:00 Aripiprazole (Abilify) 15 mg DAILY PO Last administered on 10/03/17 09:38; Start 10/02/17 at 09:00 Atorvastatin Calcium (Lipitor) 80 mg QHS PO Last administered on 10/02/17 21: 35; Start 10/02/17 at 21:00 Buspirone HCl (Buspar) 15 mg DAILY PO Last administered on 10/03/17 09:38; Start 10/02/17 at 09:00 Lactobacillus Rhamnosus (Culturelle) 1 cap BID PO Last administered on 21:35; Start 10/02/17 at 09:00 Loperamide HCl (Imodium) 2 mg PRN Q15MIN PRN PO DIARRHEA; Start 10/02/17 at 09 :00 Ringer's Solution 1,000 ml @ 75 mls/hr [id number] IV Last administered on 21:36; Start 10/02/17 at 09:00 Ondansetron HCl (Zofran) 4 mg PRN Q6HRS PRN IV NAUSEA/VOMITING; Start at 10:45; Stop 10/03/17 at 10:44; Status DC Fentanyl Citrate (Fentanyl 2ml Vial) 25 mcg PRN Q5MIN PRN IV MILD PAIN; Start 10/02/17 at 10:45; Stop 10/02/17 at 21:22; Status DC Fentanyl Citrate (Fentanyl 2ml Vial) 50 mcg PRN Q5MIN PRN IV MODERATE PAIN Last administered on 10/02/17t 17:19; Start 10/02/17 at 10:45; Stop 10/02/17 at 21:22; Status DC Morphine Sulfate 1 mg PRN Q10MIN PRN IV SEVERE PAIN Last administered on t 17:31; Start 10/02/17 at 10:45; Stop 10/02/17 at 21:22; Status DC Ringer's Solution 1,000 ml @ 30 mls/hr Q24H IV ; Start 10/02/17 at 10:45; Stop 10/02/17 at 22:44; Status DC Lidocaine HCl (Xylocaine-Mpf 1% Vial) 2 ml 1X PRN PRN ID IV START; Start 10/02 at 10:45; Stop 10/03/17 at 10:44; Status DC Hydromorphone HCl (Dilaudid) 0.5 mg PRN Q10MIN PRN IV SEV PAIN, Second choice; Start 10/02/17 at 10:45; Stop 10/02/17 at 21:22; Status DC Prochlorperazine Edisylate (Compazine) 5 mg PACU PRN PRN IV NAUSEA, MRX1; Start 10/02/17 at 10:45; Stop 10/02/17 at 21:22; Status DC Ondansetron HCl (Zofran) 4 mg PRN Q6HRS PRN IV NAUSEA/VOMITING; Start at 14:15; Stop 10/03/17 at 14:14 Fentanyl Citrate (Fentanyl 2ml Vial) 25 mcg PRN Q5MIN PRN IV MILD PAIN; Start 10/02/17 at 14:15; Stop 10/02/17 at 21:22; Status DC Fentanyl Citrate (Fentanyl 2ml Vial) 50 mcg PRN Q5MIN PRN IV MODERATE PAIN; Start 10/02/17 at 14:15; Stop 10/02/17 at 21:22; Status DC Morphine Sulfate 1 mg PRN Q10MIN PRN IV SEVERE PAIN; Start 10/02/17 at 14:15; Stop 10/02/17 at 21:22; Status DC Ringer's Solution 1,000 ml @ 0 mls/hr Q0M IV ; Start 10/02/17 at 14:12; Stop 10/03/17 at 02:11; Status DC Lidocaine HCl (Xylocaine-Mpf 1% Vial) 2 ml PRN 1X PRN ID PRIOR TO IV START; Start 10/02/17 at 14:15; Stop 10/03/17 at 14:14 Hydromorphone HCl (Dilaudid) 0.5 mg PRN Q10MIN PRN IV SEV PAIN, Second choice; Start 10/02/17 at 14:15; Stop 10/02/17 at 21:22; Status DC Prochlorperazine Edisylate (Compazine) 5 mg PACU PRN PRN IV NAUSEA, MRX1; Start 10/02/17 at 14:15; Stop 10/02/17 at 21:22; Status DC Bupivacaine HCl/ Epinephrine Bitart (Sensorcain-Mpf Epi 0.5%-[id number]) 30 ml STK -MED ONCE .ROUTE Last administered on 10/02/17t 16:14; Start 10/02/17 at 14: 45; Stop 10/02/17 at 14:46; Status DC Fentanyl Citrate (Fentanyl 5ml Vial) 250 mcg STK-MED ONCE .ROUTE ; Start at 15:38; Stop 10/02/17 at 15:39; Status DC Rocuronium [place] (Zemuron) 50 mg STK-MED ONCE .ROUTE ; Start 10/02/17 at 15: 38; Stop 10/02/17 at 15:39; Status DC Succinylcholine Chloride (Anectine) 200 mg STK-MED ONCE .ROUTE ; Start at 15:38; Stop 10/02/17 at 15:39; Status DC Desflurane (Suprane) 90 ml STK-MED ONCE IH ; Start 10/02/17 at 15:40; Stop at 15:41; Status DC Propofol 20 ml @ As Directed STK-MED ONCE IV ; Start 10/02/17 at 15:40; Stop 10/02/17 at 15:41; Status DC Lidocaine HCl (Lidocaine Pf 2% Vial) 5 ml STK-MED ONCE .ROUTE ; Start 10/02/17 at 15:40; Stop 10/02/17 at 15:41; Status DC Ondansetron HCl (Zofran) 4 mg STK-MED ONCE .ROUTE ; Start 10/02/17 at 15:44; Stop 10/02/17 at 15:45; Status DC Ephedrine Sulfate (Akovaz) 50 mg STK-MED ONCE .ROUTE ; Start 10/02/17 at 15:58 ; Stop 10/02/17 at 15:59; Status DC Neostigmine Methylsulfate (Bloxiverz) 10 mg STK-MED ONCE .ROUTE ; Start at 16:27; Stop 10/02/17 at 16:28; Status DC Glycopyrrolate (Robinul) 1 mg STK-MED ONCE .ROUTE ; Start 10/02/17 at 16:27; Stop 10/02/17 at 16:28; Status DC Lidocaine HCl (Lidocaine Pf 2% Vial) 5 ml STK-MED ONCE .ROUTE ; Start 10/02/17 at 16:38; Stop 10/02/17 at 16:39; Status DC Oxycodone/ Acetaminophen (Percocet 10/325) 1 tab PRN Q4HRS PRN PO pain Last administered on 10/03/17t 09:38; Start 10/02/17 at 17:15 Active Scripts Active Reported Divalproex Sodium Er (Divalproex Sodium) 500 Mg Tab.er.24h 500 Mg PO DAILY Probiotic (Lactobacillus Combo No.11) 1 Each Cap.sprink 1 Each PO BID Buspirone Hcl 15 Mg Tablet 15 Mg PO DAILY Atorvastatin Calcium 80 Mg Tablet 80 Mg PO DAILY Aripiprazole 15 Mg Tablet 15 Mg PO DAILY Metoprolol Succinate ( Xl ) (Metoprolol Succinate) 25 Mg Tab.er.24h 25 Mg PO DAILY Vitals/I & O Vital Sign - Last 24 Hours 10/02/17 10/02/17 10/02/17 10/02/17 14:36 16:54 16:54 17:09 Temp 98.2 97.2 98.2 97.2 Pulse 79 70 Resp 20 20 20 B/P (MAP) 122/72 128/71 Pulse Ox 92 99 O2 Delivery Room Air Simple Mask Mask Simple Mask O2 Flow Rate 10 10 10.0 10/02/17 10/02/17 10/02/17 10/02/17 17:09 17:19 17:20 17:24 Temp 99.5 99.5 Pulse 70 70 Resp 18 18 18 B/P (MAP) 121/69 120/59 Pulse Ox 100 100 97 O2 Delivery Simple Mask Nasal Cannula Nasal Cannula Nasal Cannula O2 Flow Rate 10 2.0 2 2 10/02/17 10/02/17 10/02/17 10/02/17 17:31 17:39 18:08 18:34 Temp 98.1 98.1 Pulse 74 77 79 Resp 18 18 B/P (MAP) 110/77 92/62 (72) 119/72 (88) Pulse Ox 99 97 96 96 O2 Delivery Nasal Cannula Nasal Cannula Room Air Room Air O2 Flow Rate 2.0 2 10/02/17 10/02/17 10/02/17 10/02/17 18:43 18:57 19:20 19:50 Temp 98.3 98.3 Pulse 83 85 87 85 Resp 18 18 B/P (MAP) 117/78 (91) 104/71 (82) 95/54 (68) 110/74 (86) Pulse Ox 93 94 96 95 O2 Delivery Room Air Room Air Room Air Room Air 10/02/17 10/02/17 10/02/17 10/02/17 20:00 20:10 21:30 21:36 Pulse 85 83 Resp 18 18 B/P (MAP) 108/73 (85) 87/49 (62) Pulse Ox 95 95 O2 Delivery Nasal Cannula Room Air Room Air Nasal Cannula O2 Flow Rate 2.0 2.0 10/02/17 10/03/17 10/03/17 10/03/17 23:00 00:29 00:34 01:04 Temp 98.7 98.7 Pulse 91 96 Resp 18 18 18 B/P (MAP) 89/56 (67) 97/58 (71) Pulse Ox 96 98 O2 Delivery Room Air Room Air Nasal Cannula O2 Flow Rate 2.0 2.0 10/03/17 10/03/17 10/03/17 10/03/17 03:00 03:37 04:37 06:24 Temp 98.8 98.8 Pulse 89 Resp 18 B/P (MAP) 117/72 (87) Pulse Ox 96 O2 Delivery Room Air Nasal Cannula Room Air O2 Flow Rate 1.0 1.0 10/03/17 10/03/17 10/03/17 10/03/17 07:00 07:20 09:38 09:38 Temp 98.4 98.4 Pulse 76 76 Resp 18 B/P (MAP) 125/74 (91) 125/74 Pulse Ox 91 O2 Delivery Room Air Room Air Room Air 10/03/17 10/03/17 10/03/17 10/03/17 11:02 11:23 11:27 12:03 Temp 98.1 98.1 Pulse 65 Resp 20 B/P (MAP) 132/74 (93) Pulse Ox 94 O2 Delivery Room Air Room Air Room Air Room Air Intake and Output 10/02/17 10/02/17 10/03/17 15:00 23:00 07:00 Intake Total 1800 ml Output Total 175 ml 700 ml Balance 1625 ml -700 ml KENNEY CHI MD Oct 03, 2017 13:36
[2017-10-03 13:43] LABS: CALCIUM 8.5 mg/dL (8.5-10.1); CREATININE 1.1 mg/dL (0.7-1.3); GFR 74.1; POTASSIUM 3.8 mmol/L (3.5-5.1)
[2017-10-03] MEDS: ATORVASTATIN CALCIUM 40 MG TABLET. PO SCH (19:57)
[2017-10-04] MEDS: oxyCODONE/APAP 10/325 1 TAB TABLET PO PRN ×3 (00:51→12:02)
[2017-10-04 03:00] VITALS: BP 139/83
[2017-10-04] MEDS: IV RINGERS,LACTATED 1000ML 1,000 ML IV SCH (03:05)
[2017-10-04 07:00] VITALS: BP 127/70
[2017-10-04] MEDS: ARIPiprazole 5 MG TABLET PO SCH (08:06)
[2017-10-04] MEDS: LACTOBACILLUS RHAMNOSUS GG 1 CAPSULE. PO SCH (08:07)
[2017-10-04] MEDS: DIVALPROEX EXTENDED RELEASE 500 MG TAB.ER.24H. PO SCH (08:07)
[2017-10-04] MEDS: busPIRone 5 MG TABLET. PO SCH (08:07)
[2017-10-04] MEDS: METOPROLOL SUCC 24HR ER 25 MG TAB.ER.24H. PO SCH (08:07)
[2017-10-04] MEDS ORDERED: POLYETHYLENE GLYCOL 3350 17 GM PACKET. PO SCH (09:00)
--- NOTE | 2017-10-04 10:44 | PDOC ---
SURGICAL PROGRESS NOTE Subjective better today no BM just took some prune juice Vital Signs Vital Signs Date Time Temp Pulse Resp B/P (MAP) Pulse Ox O2 Delivery O2 Flow Rate FiO2 10/04/17 08:07 75 127/70 10/04/17 07:00 97.8 18 96 Room Air 97.8 I&O Intake and Output 10/04/17 07:00 Intake Total 4373 ml Balance 4373 ml Intake Oral 2750 ml IV Total 1623 ml # Voids 9 PATIENT HAS A SANTANA: No General: Alert, Oriented X3, Cooperative, No acute distress Abdomen: Soft, Other (minimally TTP) Labs Laboratory Tests Test 10/03/17 13:00 White Blood Count 12.2 x10^3/uL (4.0-11.0) Red Blood Count 4.33 x10^6/uL (4.30-5.70) Hemoglobin 12.7 g/dL (13.0-17.5) Hematocrit 38.8 % (39.0-53.0) Mean Corpuscular Volume 90 fL (79-100) Mean Corpuscular Hemoglobin 29 pg (25-35) Mean Corpuscular Hemoglobin Concent 33 g/dL (31-37) Red Cell Distribution Width 14.4 % (11.5-14.5) Platelet Count 241 x10^3/uL (140-400) Neutrophils (%) (Auto) 58 % (31-73) Lymphocytes (%) (Auto) 34 % (24-48) Monocytes (%) (Auto) 6 % (0-9) Eosinophils (%) (Auto) 2 % (0-3) Basophils (%) (Auto) 1 % (0-3) Neutrophils # (Auto) 7.1 x10^3uL (1.8-7.7) Lymphocytes # (Auto) 4.1 x10^3/uL (1.0-4.8) Monocytes # (Auto) 0.7 x10^3/uL (0.0-1.1) Eosinophils # (Auto) 0.2 x10^3/uL (0.0-0.7) Basophils # (Auto) 0.1 x10^3/uL (0.0-0.2) Sodium Level 136 mmol/L (136-145) Potassium Level 3.8 mmol/L (3.5-5.1) Chloride Level 100 mmol/L (98-107) Carbon Dioxide Level 30 mmol/L (21-32) Anion Gap 6 (6-14) Blood Urea Nitrogen 11 mg/dL (8-26) Creatinine 1.1 mg/dL (0.7-1.3) Estimated GFR (Cockcroft-Gault) 74.1 Glucose Level 116 mg/dL (70-99) Calcium Level 8.5 mg/dL (8.5-10.1) Laboratory Tests Test 10/03/17 13:00 White Blood Count 12.2 x10^3/uL (4.0-11.0) Red Blood Count 4.33 x10^6/uL (4.30-5.70) Hemoglobin 12.7 g/dL (13.0-17.5) Hematocrit 38.8 % (39.0-53.0) Mean Corpuscular Volume 90 fL (79-100) Mean Corpuscular Hemoglobin 29 pg (25-35) Mean Corpuscular Hemoglobin Concent 33 g/dL (31-37) Red Cell Distribution Width 14.4 % (11.5-14.5) Platelet Count 241 x10^3/uL (140-400) Neutrophils (%) (Auto) 58 % (31-73) Lymphocytes (%) (Auto) 34 % (24-48) Monocytes (%) (Auto) 6 % (0-9) Eosinophils (%) (Auto) 2 % (0-3) Basophils (%) (Auto) 1 % (0-3) Neutrophils # (Auto) 7.1 x10^3uL (1.8-7.7) Lymphocytes # (Auto) 4.1 x10^3/uL (1.0-4.8) Monocytes # (Auto) 0.7 x10^3/uL (0.0-1.1) Eosinophils # (Auto) 0.2 x10^3/uL (0.0-0.7) Basophils # (Auto) 0.1 x10^3/uL (0.0-0.2) Sodium Level 136 mmol/L (136-145) Potassium Level 3.8 mmol/L (3.5-5.1) Chloride Level 100 mmol/L (98-107) Carbon Dioxide Level 30 mmol/L (21-32) Anion Gap 6 (6-14) Blood Urea Nitrogen 11 mg/dL (8-26) Creatinine 1.1 mg/dL (0.7-1.3) Estimated GFR (Cockcroft-Gault) 74.1 Glucose Level 116 mg/dL (70-99) Calcium Level 8.5 mg/dL (8.5-10.1) Problem List Problems Medical Problems: (1) Abdominal pain Status: Acute Assessment/Plan POD 2 l/s appy home today stay off work til seen in the office 10/09 Problems: KYLE MARTINEZ MD Oct 04, 2017 10:44
[2017-10-04 11:00] VITALS: BP 109/72
[2017-10-04] MEDS ORDERED: MAGNESIUM HYDROXIDE 2,400 MG/30 ML ORAL.SUSP. PO ONE (11:00)
--- NOTE | 2017-10-04 11:01 | PDOC3 ---
Discharge Summary Visit Information Date of Admission: Oct 01, 2017 Date of Discharge: Oct 04, 2017 Admitting Diagnosis Comment: 1. s/p appy POD # 2 2. Obesity BMI 34.6 Final Diagnosis Problems Medical Problems: (1) Abdominal pain Status: Acute Brief Hospital Course Allergies Allergies Coded Allergies Type Severity Reaction Last Updated Verified Penicillins Allergy Severe 10/02/17 Yes codeine Allergy Intermediate 10/02/17 Yes Vital Signs Vital Signs Date Time Temp Pulse Resp B/P (MAP) Pulse Ox O2 Delivery O2 Flow Rate FiO2 10/04/17 08:07 75 127/70 10/04/17 07:00 97.8 18 96 Room Air 97.8 Lab Results Laboratory Tests Test 10/03/17 13:00 White Blood Count 12.2 x10^3/uL (4.0-11.0) Red Blood Count 4.33 x10^6/uL (4.30-5.70) Hemoglobin 12.7 g/dL (13.0-17.5) Hematocrit 38.8 % (39.0-53.0) Mean Corpuscular Volume 90 fL (79-100) Mean Corpuscular Hemoglobin 29 pg (25-35) Mean Corpuscular Hemoglobin Concent 33 g/dL (31-37) Red Cell Distribution Width 14.4 % (11.5-14.5) Platelet Count 241 x10^3/uL (140-400) Neutrophils (%) (Auto) 58 % (31-73) Lymphocytes (%) (Auto) 34 % (24-48) Monocytes (%) (Auto) 6 % (0-9) Eosinophils (%) (Auto) 2 % (0-3) Basophils (%) (Auto) 1 % (0-3) Neutrophils # (Auto) 7.1 x10^3uL (1.8-7.7) Lymphocytes # (Auto) 4.1 x10^3/uL (1.0-4.8) Monocytes # (Auto) 0.7 x10^3/uL (0.0-1.1) Eosinophils # (Auto) 0.2 x10^3/uL (0.0-0.7) Basophils # (Auto) 0.1 x10^3/uL (0.0-0.2) Sodium Level 136 mmol/L (136-145) Potassium Level 3.8 mmol/L (3.5-5.1) Chloride Level 100 mmol/L (98-107) Carbon Dioxide Level 30 mmol/L (21-32) Anion Gap 6 (6-14) Blood Urea Nitrogen 11 mg/dL (8-26) Creatinine 1.1 mg/dL (0.7-1.3) Estimated GFR (Cockcroft-Gault) 74.1 Glucose Level 116 mg/dL (70-99) Calcium Level 8.5 mg/dL (8.5-10.1) Laboratory Tests Test 10/03/17 13:00 White Blood Count 12.2 x10^3/uL (4.0-11.0) Red Blood Count 4.33 x10^6/uL (4.30-5.70) Hemoglobin 12.7 g/dL (13.0-17.5) Hematocrit 38.8 % (39.0-53.0) Mean Corpuscular Volume 90 fL (79-100) Mean Corpuscular Hemoglobin 29 pg (25-35) Mean Corpuscular Hemoglobin Concent 33 g/dL (31-37) Red Cell Distribution Width 14.4 % (11.5-14.5) Platelet Count 241 x10^3/uL (140-400) Neutrophils (%) (Auto) 58 % (31-73) Lymphocytes (%) (Auto) 34 % (24-48) Monocytes (%) (Auto) 6 % (0-9) Eosinophils (%) (Auto) 2 % (0-3) Basophils (%) (Auto) 1 % (0-3) Neutrophils # (Auto) 7.1 x10^3uL (1.8-7.7) Lymphocytes # (Auto) 4.1 x10^3/uL (1.0-4.8) Monocytes # (Auto) 0.7 x10^3/uL (0.0-1.1) Eosinophils # (Auto) 0.2 x10^3/uL (0.0-0.7) Basophils # (Auto) 0.1 x10^3/uL (0.0-0.2) Sodium Level 136 mmol/L (136-145) Potassium Level 3.8 mmol/L (3.5-5.1) Chloride Level 100 mmol/L (98-107) Carbon Dioxide Level 30 mmol/L (21-32) Anion Gap 6 (6-14) Blood Urea Nitrogen 11 mg/dL (8-26) Creatinine 1.1 mg/dL (0.7-1.3) Estimated GFR (Cockcroft-Gault) 74.1 Glucose Level 116 mg/dL (70-99) Calcium Level 8.5 mg/dL (8.5-10.1) Brief Hospital Course Mr. Fu is a 42 old obese male who had appy, underwent lap ella , had some leukocytosis post op peaked at 12, no fevers, cleared from [facility], I am also sending home on some PO abx Seen an d examined Dc < 30 mins Discharge Information Condition at Discharge: Improved, Stable Disposition/Orders: D/C to Home Scheduled Aripiprazole (Aripiprazole), 15 MG PO DAILY, (Reported) Atorvastatin Calcium (Atorvastatin Calcium), 80 MG PO DAILY, (Reported) Buspirone Hcl (Buspirone Hcl), 15 MG PO DAILY, (Reported) Divalproex Sodium (Divalproex Sodium Er), 500 MG PO DAILY, (Reported) Lactobacillus Combo No.11 (Probiotic), 1 EACH PO BID, (Reported) Metoprolol Succinate (Metoprolol Succinate ( Xl )), 25 MG PO DAILY, (Reported) KENNEY CHI MD Oct 04, 2017 11:01
--- NOTE | 2017-10-05 13:40 | PATHOLOGY ---
PATHOLOGY REPORT * * * * * * * * FINAL DIAGNOSIS: Appendix, laparoscopic appendectomy: - Fecaliths. - Submucosal fatty infiltration. COMMENT: The appendiceal lumen is dilated and contains several fecaliths. The appendiceal mucosa, however, appears intact. There is no acute inflammatory cell infiltrate within the appendiceal mucosa or fibromuscular wall. (JPM:mml; 10/05/2017) REPORT ELECTRONICALLY SIGNED BY: Ryan Zambrano M.D. DATE/TIME: 10/05/2017 13:38 * * * * * * * * GROSS PATHOLOGY: Received in formalin labeled "Rajan Godoy, appendix," is an appendix measuring 6.3 cm in length and 1.0 cm in diameter with a moderate amount of attached mesoappendix. The serosal surface is mann-lange, smooth, and encased with adhesions. Sectioning reveals a dilated lumen containing multiple fecaliths. Respiratory Care Assistant sections are submitted in cassette A1. (SDY; 10/04/2017) INITIAL CPT CODE(S): A; 18805 Professional services performed [place] [facility] [address] Technical services performed by [facility] at [address] [place] [address]. SPECIMEN(S) RECEIVED: A.Appendix CLINICAL HISTORY: Diarrhea, abdominal pain PATIENT: RAJAN GODOY V /AGE: 3 1975 (Age: 42) PATIENT #: [id number] ALT CASE #: SPECIMEN COLLECTION DATE: 10/02/2017 SPECIMEN RECEIVED DATE: 10/03/2017 [facility] - [id number] [place] [address] - PHONE: [phone] * * * END OF REPORT * * *
== END 2017-10-04 14:04 | disposition home or self-care (01) | DRG 343 ==
LOC: ER 19:29 → 4 NORTH 21:30
PROVIDERS: ADMIT Internal Medicine; ATTEND Internal Medicine
PROC: 0DTJ4ZZ Resection of Appendix, Percutaneous Endoscopic Approach (ICD-10-PCS; principal; 2017-10-02 15:30)
DX: K35.80 Unspecified acute appendicitis (principal); E27.8 Other specified disorders of adrenal gland; E66.9 Obesity, unspecified; E78.5 Hyperlipidemia, unspecified; F17.200 Nicotine dependence, unspecified, uncomplicated; F31.9 Bipolar disorder, unspecified; I10 Essential (primary) hypertension; Z68.34 Body mass index [BMI] 34.0-34.9, adult; Z82.49 Family history of ischemic heart disease and other diseases of the circulatory system; Z88.5 Allergy status to narcotic agent; Z88.0 Allergy status to penicillin
CPT/HCPCS: 36415; 74177; 80048; 80076; 80307; 81001; 82553; 83690; 84484; 85025; 85610; 85730; 87324; 93005; 96361; 96374; 96375; 96376; C1769; J0330; J1956; J2270; J2405; J2704; J2710; J3010; J3490; J7030; J7120; Q9967; 99285-25; G0479; J2001

== ENCOUNTER 2018-12-09 19:55 | Emergency (ER) | payer OTHER ==
[~2018-12-09] VITALS: Ht 172.7 cm; Wt 105.2 kg
[~2018-12-09 19:55] MED LIST: ARIP15TA6 PO; ATOR80TA72 PO; BUSP15TA PO; DIVA500T17 PO; LACT1CAP8 PO; METO-239 PO
[2018-12-09] MEDS ORDERED: IV NORMAL SALINE 1000ML BAG 1,000 ML IV SCH (20:11)
[2018-12-09] MEDS ORDERED: KETOROLAC 30 MG/ML VIAL. IV ONE (20:15)
[2018-12-09] MEDS ORDERED: PROCHLORPERAZINE 10 MG/2 ML VIAL. IV ONE (20:15)
--- NOTE | 2018-12-09 20:16 | PHYS DOC ---
Past Medical History Past Medical History: Bipolar, High Cholesterol, Hypertension, Other Additional Past Medical Histor: DIVERTICULITIS Past Surgical History: Appendectomy, Other Additional Past Surgical Histo: HERNIA, R. SHOULDER Smoking: Cigarettes, Greater than 1 pack/day Alcohol Use: Occasionally Drug Use: None Adult General Chief Complaint Chief Complaint: ABDOMINAL PAIN HPI HPI Patient is a 43 year old male who presents with left-sided abdominal pain. This started approximately 2 weeks ago and has been getting worse over time. Patient had first episode of nausea and vomiting this evening. No blood in the emesis. No blood in his stool. No relief with Flexeril for an unrelated back pain. No constipation. No diarrhea. Laying flat makes it worse, seated position improves it. Pain is moderate to severe in intensity. Sharp in nature.[] Review of Systems Review of Systems Constitutional: Denies fever or chills [] Eyes: Denies change in visual acuity, redness, or eye pain [] HENT: Denies nasal congestion or sore throat [] Respiratory: Denies cough or shortness of breath [] Cardiovascular: No chest pain or palpitations[] GI: See history of present illness[] : Denies dysuria or hematuria [] Musculoskeletal: Denies back pain or joint pain [] Integument: Denies rash or skin lesions [] Neurologic: Denies headache, focal weakness or sensory changes [] Endocrine: Denies polyuria or polydipsia [] All other systems were reviewed and found to be within normal limits, except as documented in this note. Current Medications Current Medications Current Medications Medications (Trade) Dose Ordered Sig/Trinh Start Time Stop Time Status Last Admin Dose Admin Hyoscyamine (Anaspaz) 0.125 mg ONCE ONCE 12/09/18 22:30 12/09/18 22:31 DC 12/09/18 22:28 0.125 MG Ketorolac Tromethamine (Toradol 30mg Vial) 30 mg 1X ONCE 12/09/18 20:15 12/09/18 20:16 DC 12/09/18 20:28 30 MG Prochlorperazine Edisylate (Compazine) 5 mg 1X ONCE 12/09/18 20:15 12/09/18 20:16 DC 12/09/18 20:30 5 MG Sodium Chloride 1,000 ml @ 1,000 mls/hr Q1H 12/09/18 20:11 12/09/18 21:10 DC 12/09/18 20:24 1,000 MLS/HR Allergies Allergies Allergies Coded Allergies Type Severity Reaction Last Updated Verified Penicillins Allergy Severe 10/02/17 Yes codeine Allergy Intermediate 10/02/17 Yes Physical Exam Physical Exam Constitutional: Well developed, well nourished, no acute distress, non-toxic appearance. [] HENT: Normocephalic, atraumatic, bilateral external ears normal, oropharynx moist, no oral exudates, nose normal. [] Eyes: PERRLA, EOMI, conjunctiva normal, no discharge. [] Neck: Normal range of motion, no tenderness, supple, no stridor. [] Cardiovascular:Heart rate regular rhythm, no murmur [] Lungs & Thorax: Bilateral breath sounds clear to auscultation [] Abdomen: Bowel sounds normal, soft, tenderness on the left side, lower quadrant , no rebound, no guarding, no rigidity, no masses, no pulsatile masses. [] Skin: Warm, dry, no erythema, no rash. [] Back: No tenderness, no CVA tenderness. [] Extremities: No tenderness, no cyanosis, no clubbing, ROM intact, no edema. [] Neurologic: Alert and oriented X 3, normal motor function, normal sensory function, no focal deficits noted. [] Psychologic: Affect normal, judgement normal, mood normal. [] Current Patient Data Vital Signs Vital Signs Date Time Temp Pulse Resp B/P (MAP) Pulse Ox O2 Delivery O2 Flow Rate FiO2 12/09/18 20:13 98.3 98 20 141/82 (101) 97 Room Air 98.3 Lab Values Laboratory Tests Test 12/09/18 20:05 12/09/18 21:33 White Blood Count 11.8 x10^3/uL (4.0-11.0) H Red Blood Count 4.75 x10^6/uL (4.30-5.70) Hemoglobin 14.1 g/dL (13.0-17.5) Hematocrit 41.2 % (39.0-53.0) Mean Corpuscular Volume 87 fL (79-100) Mean Corpuscular Hemoglobin 30 pg (25-35) Mean Corpuscular Hemoglobin Concent 34 g/dL (31-37) Red Cell Distribution Width 15.2 % (11.5-14.5) H Platelet Count 266 x10^3/uL (140-400) Neutrophils (%) (Auto) 54 % (31-73) Lymphocytes (%) (Auto) 37 % (24-48) Monocytes (%) (Auto) 6 % (0-9) Eosinophils (%) (Auto) 2 % (0-3) Basophils (%) (Auto) 1 % (0-3) Neutrophils # (Auto) 6.4 x10^3uL (1.8-7.7) Lymphocytes # (Auto) 4.4 x10^3/uL (1.0-4.8) Monocytes # (Auto) 0.7 x10^3/uL (0.0-1.1) Eosinophils # (Auto) 0.3 x10^3/uL (0.0-0.7) Basophils # (Auto) 0.1 x10^3/uL (0.0-0.2) PTT 26 SEC (24-38) Sodium Level 130 mmol/L (136-145) L Potassium Level 4.3 mmol/L (3.5-5.1) Chloride Level 94 mmol/L (98-107) L Carbon Dioxide Level 28 mmol/L (21-32) Anion Gap 8 (6-14) Blood Urea Nitrogen 22 mg/dL (8-26) Creatinine 1.0 mg/dL (0.7-1.3) Estimated GFR (Cockcroft-Gault) 82.3 BUN/Creatinine Ratio 22 (6-20) H Glucose Level 263 mg/dL (70-99) H Calcium Level 9.1 mg/dL (8.5-10.1) Total Bilirubin 0.3 mg/dL (0.2-1.0) Aspartate Amino Transferase (AST) 22 U/L (15-37) Alanine Aminotransferase (ALT) 51 U/L (16-63) Alkaline Phosphatase 103 U/L (46-116) Total Protein 7.0 g/dL (6.4-8.2) Albumin 3.3 g/dL (3.4-5.0) L Albumin/Globulin Ratio 0.9 (1.0-1.7) L Lipase 167 U/L (73-393) Urine Collection Type Unknown Urine Color Yellow Urine Clarity Clear Urine pH 6.5 Urine Specific [place] 1.025 Urine Protein Negative mg/dL (NEG-TRACE) Urine Glucose (UA) Negative mg/dL (NEG) Urine Ketones (Stick) Negative mg/dL (NEG) Urine Blood Negative (NEG) Urine Nitrite Negative (NEG) Urine Bilirubin Negative (NEG) Urine Urobilinogen Dipstick 1.0 mg/dL (0.2 mg/dL) Urine Leukocyte Esterase Negative (NEG) Urine RBC 3-5 /HPF (0-2) Urine WBC 0 /HPF (0-4) Urine Squamous Epithelial Cells None /LPF Urine Bacteria 0 /HPF (0-FEW) Urine Mucus Mod /LPF Laboratory Tests 12/09/18 20:05 Laboratory Tests 12/09/18 20:05 EKG EKG [] Radiology/Procedures Radiology/Procedures CT abdomen and pelvis without contrast: Reason for examination: Left lower quadrant abdominal pain. Helical images were obtained through the abdomen and pelvis with no intravenous or oral contrast administered. Reconstruction was performed in sagittal and coronal planes. Exposure: One or more of the following individualized dose reduction techniques were utilized for this examination: 1. Automated exposure control 2. Adjustment of the mA and/or kV according to patient size 3. Use of iterative reconstruction technique. There are small bulla in the lung bases bilaterally. There is some dependent atelectasis. The heart size is normal with no pericardial effusion. No abnormality seen at the liver, spleen or pancreas. The gallbladder is contracted but no choleliths are identified. The patient's stomach contains a large amount of gastric content. There continues to be hypodense lesion in the left adrenal gland measuring approximately 2.5 cm in greatest dimension which is stable. No abnormality seen at the right adrenal gland. The abdominal aorta and inferior vena cava show no acute abnormalities but there are some minimal arteriosclerotic vascular calcification. The appendix appears to be some calcification at the tip of the cecum. There is no evidence of diverticulosis or diverticulitis. The small intestinal tract shows no abnormally dilated loops of bowel or bowel obstruction. No abnormality seen at the bladder, prostate gland or seminal vesicles. No free fluid or free air is seen in the abdomen or pelvis. No acute bony abnormality seen. There is some degenerative discs disease at the L4-5 disc level. IMPRESSION: Small bulla in the lung bases. Contracted gallbladder with no choleliths evident but the patient's stomach contains a large amount of gastric content. 2.5 cm left adrenal nodule without change.[] Course & Med Decision Making Course & Med Decision Making Pertinent Labs and Imaging studies reviewed. (See chart for details) ED course: Patient arrived, was placed in bed, tolerate exam well. Patient was given IV fluids, antiemetics, and pain medicine which did improve his pain. Patient had no additional nausea or vomiting. He was transported to and from [place] with any Patients. After return of laboratory and imaging findings, these were discussed with the patient voiced understanding. All questions were answered. Patient was discharged in improved condition. Marnie decision making: There is no evidence of diverticulitis, obstruction, perforation, nor significant electrolytic abnormality. No evidence of kidney stone or urinary tract infection. No evidence of surgical pathology.[] Dragon Disclaimer Dragon Disclaimer This electronic medical record was generated, in whole or in part, using a voice recognition dictation system. Departure Departure Impression: Primary Impression: Abdominal pain Additional Impression: Vomiting Disposition: HOME, SELF-CARE Condition: IMPROVED Referrals: KATRIN ACOSTA MD (PCP) Follow-up in 2 days Patient Instructions: Abdominal Pain (Nonspecific), Nausea and Vomiting Additional Instructions: Drink plenty of fluids, frequent small sips. No fatty foods, no milk, and no pepper for the next 48 hours. For the next 48 hours eat a diet rich in carbohydrates with foods such as bananas, rice, applesauce, and toast. Follow- up with your regular doctor in 2 days. Return to the ER if unable to tolerate liquids, fever more than 101, blood in the emesis, or any other concerns. Scripts Metoclopramide Hcl (REGLAN) 10 Mg Tablet 10 MG PO QIDACHS, #30 TAB 0 Refills Prov: JOSE WELLER DO 12/09/18 Meloxicam (MELOXICAM) 7.5 Mg Tablet 7.5 MG PO DAILY, #20 TAB Prov: JOSE WELLER DO 12/09/18 Hyoscyamine Sulfate (LEVSIN) 0.125 Mg Tablet 0.125 MG PO QID, #30 TAB Prov: JOSE WELLER DO 12/09/18 Problem Qualifiers Primary Impression: Abdominal pain Abdominal location: left lower quadrant Qualified Codes: R10.32 - Left lower quadrant pain Additional Impression: Vomiting Vomiting type: unspecified Vomiting Intractability: non-intractable Nausea presence: with nausea Qualified Codes: R11.2 - Nausea with vomiting, unspecified JOSE WELLER DO Dec 09, 2018 20:16
[2018-12-09 20:23] LABS: BASO # 0.1 x10^3/uL (0.0-0.2); BASO % 1 % (0-3); EOS # 0.3 x10^3/uL (0.0-0.7); EOS % 2 % (0-3); HEMATOCRIT 41.2 % (39.0-53.0); HEMOGLOBIN 14.1 g/dL (13.0-17.5); LYMPH # 4.4 x10^3/uL (1.0-4.8); LYMPH % 37 % (24-48); MEAN CORPUSCULAR HEMOGLOBIN 30 pg (25-35); MEAN CORPUSCULAR HGB CONC 34 g/dL (31-37); MEAN CORPUSCULAR VOLUME 87 fL (79-100); MONO # 0.7 x10^3/uL (0.0-1.1); MONO % 6 % (0-9); NEUT # 6.4 x10^3uL (1.8-7.7); NEUT % 54 % (31-73); PLATELET COUNT 266 x10^3/uL (140-400); RED BLOOD COUNT 4.75 x10^6/uL (4.30-5.70); RED CELL DISTRIBUTION WIDTH 15.2 % (11.5-14.5); WHITE BLOOD COUNT 11.8 x10^3/uL (4.0-11.0)
[2018-12-09 20:35] LABS: CALCIUM 9.1 mg/dL (8.5-10.1); GFR 82.3; POTASSIUM 4.3 mmol/L (3.5-5.1)
[2018-12-09 20:41] LABS: ALBUMIN 3.3 g/dL (3.4-5.0); ALBUMIN/GLOBULIN RATIO 0.9 (1.0-1.7); TOTAL BILIRUBIN 0.3 mg/dL (0.2-1.0)
--- NOTE | 2018-12-09 21:17 | RAD ---
CT abdomen and pelvis without contrast: Reason for examination: Left lower quadrant abdominal pain. Helical images were obtained through the abdomen and pelvis with no intravenous or oral contrast administered. Reconstruction was performed in sagittal and coronal planes. Exposure: One or more of the following individualized dose reduction techniques were utilized for this examination: 1. Automated exposure control 2. Adjustment of the mA and/or kV according to patient size 3. Use of iterative reconstruction technique. There are small bulla in the lung bases bilaterally. There is some dependent atelectasis. The heart size is normal with no pericardial effusion. No abnormality seen at the liver, spleen or pancreas. The gallbladder is contracted but no choleliths are identified. The patient's stomach contains a large amount of gastric content. There continues to be hypodense lesion in the left adrenal gland measuring approximately 2.5 cm in greatest dimension which is stable. No abnormality seen at the right adrenal gland. The abdominal aorta and inferior vena cava show no acute abnormalities but there are some minimal arteriosclerotic vascular calcification. The appendix appears to be some calcification at the tip of the cecum. There is no evidence of diverticulosis or diverticulitis. The small intestinal tract shows no abnormally dilated loops of bowel or bowel obstruction. No abnormality seen at the bladder, prostate gland or seminal vesicles. No free fluid or free air is seen in the abdomen or pelvis. No acute bony abnormality seen. There is some degenerative discs disease at the L4-5 disc level. IMPRESSION: Small bulla in the lung bases. Contracted gallbladder with no choleliths evident but the patient's stomach contains a large amount of gastric content. 2.5 cm left adrenal nodule without change. Electronically signed by: Angelina Mobley MD (12/09/2018 9:12 PM) [facility]
[2018-12-09 21:43] LABS: BILIRUBIN,URINE NEGATIVE (NEG); CLARITY,URINE CLEAR; COLOR,URINE YELLOW; NITRITE,URINE NEGATIVE (NEG); PH,URINE 6.5; PROTEIN,URINE NEGATIVE (NEG-TRACE)
[2018-12-09 21:49] LABS: BACTERIA,URINE 0 /HPF (0-FEW); WBC,URINE 0 /HPF (0-4)
[2018-12-09] MEDS ORDERED: HYOS0.1264 PO (22:26)
[2018-12-09] MEDS ORDERED: MELO7.5T29 PO (22:26)
[2018-12-09 22:30] VITALS: BP 122/75
[2018-12-09] MEDS ORDERED: HYOSCYAMINE 0.125 MG TAB.RAPDIS PO ONE (22:30)
[2018-12-09] MEDS ORDERED: METO10TA81 PO (22:55)
== END 2018-12-09 23:00 | disposition home or self-care (01) ==
LOC: ER 19:55
DX: R10.32 Left lower quadrant pain (principal); R11.2 Nausea with vomiting, unspecified; J43.9 Emphysema, unspecified; F31.9 Bipolar disorder, unspecified; E78.00 Pure hypercholesterolemia, unspecified; I10 Essential (primary) hypertension; F17.210 Nicotine dependence, cigarettes, uncomplicated; Z90.89 Acquired absence of other organs; Z88.0 Allergy status to penicillin; Z88.5 Allergy status to narcotic agent
CPT/HCPCS: 36415; 74176; 80053; 81001; 83690; 85025; 85730; 96361; 96374; 96375; 99284; J0780; J1885; J7030